=== PATIENT | female | born 2000 | race Hispanic/Latino ===

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

== ENCOUNTER 2020-05-08 09:25 | Emergency (ER) | payer SELFPAY ==
[2020-05-08 10:19] LABS: Absolute Lymphocytes (CBC) 1.8 K/uL (0.7-4.9); Basophils % 0.5 % (0-1.3); Hematocrit 35.9 % (36.0-45.0); Lymphocytes % 27.5 % (15.3-44.8); MPV 7.5 fL (7.6-11.3); RBC Red Blood Cell Count 3.98 M/uL (3.86-4.86)
[2020-05-08 10:20] LABS: Urine Blood 2+ (NEG); Urine Glucose NEGATIVE (NEG); Urine Protein 1+ (NEG)
[2020-05-08 10:29] LABS: Urine Bacteria >50 /HPF (<20); Urine Mucus MOD /HPF (NONE SEEN)
--- OUTSIDE RECORDS SUMMARY | 2020-05-08 10:31 | XMS REPORT | Continuity of Care Document ---
:2000 Author Organization [facility] t Address [facility] [address] [place] [address] Care Team Providers Name Role Phone Unavailable Unavailable Unavailable Problems This patient has no known problems. Allergies, Adverse Reactions, Alerts This patient has no known allergies or adverse reactions. Medications This patient has no known medications. Procedures This patient has no known procedures. Encounters Start End Encounter Admission Attending Care Care Encounter Source Date/Time Date/Time Type Type Clinicians Facility Department ID 2019-03-29 2019-03-29 Emergency E [facility] [address] [facility] 21:51:00 21:51:00 Results This patient has no known results.
[2020-05-08 10:34] LABS: ALT/SGPT 25 U/L (12-78); AST/SGOT 18 U/L (15-37); Albumin 3.7 g/dL (3.4-5.0); Alkaline Phosphatase 91 U/L (45-117); BUN Blood Urea Nitrogen 9 mg/dL (7-18); Bicarbonate 29 mmol/L (21-32); Bilirubin Direct < 0.1 mg/dL (0-0.2); Bilirubin Total 0.3 mg/dL (0.2-1.0); Glucose Level 94 mg/dL (74-106); Lipase 52 U/L (73-393); Potassium 3.5 mmol/L (3.5-5.1); Protein, Total 8.3 g/dL (6.4-8.2); Sodium Level 140 mmol/L (136-145)
--- NOTE | 2020-05-08 10:36 | RAD REPORT ---
EXAM DESCRIPTION: CT - Stone Protocol - 05/08/2020 10:21 am CLINICAL HISTORY: Abdominal pain. COMPARISON: None. TECHNIQUE: Computed axial tomography of the abdomen pelvis was obtained without oral or IV contrast. Lack of IV and oral contrast limits evaluation of solid organs, bowel, and vessels. Coronal reformat hiram images were obtained and reviewed. All CT scans are performed using dose optimization technique as appropriate and may include automated exposure control or mA/KV adjustment according to patient size. FINDINGS: A renal calculus is not seen. An ureteral calculus is not noted. A bladder calculus is not present. The liver is enlarged. Spleen, pancreas and adrenals appear grossly normal There is no evidence of diverticulitis. The appendix appears normal 4.5 centimeter right breast mass 3 centimeter right ovarian cyst without significant free fluid is noted. Tiny umbilical hernia IMPRESSION: Negative for a genitourinary calculus Hepatomegaly 4.5 centimeter right breast mass. Ultrasound recommended 3 centimeter right ovarian cyst without significant free fluid
--- NOTE | 2020-05-08 10:43 | ER ---
Nurse's Notes [facility] Name: Rosemary Arnold Age: 19 yrs Sex: Female : 2000 Arrival Date: 05/08/2020 Time: 09:27 Bed 13 Private MD: Diagnosis: Unspecified ovarian cysts;Urinary tract infection, site not specified;Breast Mass Presentation: 05/08 09:36 Chief complaint: Patient states: pelvic pain and vaginal pain, intermittent for about a iw week, has hx of ovarian cysts, and has intermittent vaginal bleeding, not , and her tonsils are swollen and painful since Thanksgiving , no fever or chills. Coronavirus screen: sore throat. Ebola Screen: Patient negative for fever greater than or equal to 101.5 degrees Fahrenheit, and additional compatible Ebola Virus Disease symptoms Patient denies exposure to infectious person. Patient denies travel to an Ebola-affected area in the 21 days before illness onset. No symptoms or risks identified at this time. Initial Sepsis Screen: Does the patient meet any 2 criteria? No. Patient's initial sepsis screen is negative. Does the patient have a suspected source of infection? No. Patient's initial sepsis screen is negative. Risk Assessment: Do you want to hurt yourself or someone else? Patient reports no desire to harm self or others. Onset of symptoms was May 01, 2020. 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 - Social history:: Smoking status: Patient denies any tobacco usage or history of. - Family history:: not pertinent. - Hospitalizations: : No recent hospitalization is reported. Screenin:14 Abuse screen: Denies threats or abuse. Denies injuries from another. Nutritional zb screening: No deficits noted. Tuberculosis screening: No symptoms or risk factors identified. Fall Risk None identified. Assessment: 10:09 General: Appears in no apparent distress. comfortable, Behavior is calm, cooperative, zb appropriate for age, Denies fever, feeling ill, fatigue. Pain: Complains of pain in right femoral area, left femoral area, right inguinal area and left inguinal area Pain does not radiate. Pain currently is 6 out of 10 on a pain scale. Quality of pain is described as aching, sharp. Neuro: Level of Consciousness is awake, alert, obeys commands, Oriented to person, place, time, situation. Cardiovascular: Capillary refill < 3 seconds in bilateral fingers Patient's skin is warm and dry. Respiratory: Airway is patent Respiratory effort is even, unlabored, Respiratory pattern is regular, symmetrical. GI: Abdomen is flat, non-distended. : Reports pain Denies burning with urination, incontinence, urgency. EENT: Throat is clear has enlarged tonsils bilaterally with gag reflex present. Derm: Skin is intact, is healthy with good turgor, Skin is Skin is normal. Musculoskeletal: Circulation, motion, and sensation intact. Capillary refill < 3 seconds, in bilateral Range of motion: intact in all extremities. 11:00 Reassessment: Patient appears in no apparent distress at this time. Patient and/or zb family updated on plan of care and expected duration. Pain level reassessed. Patient is alert, oriented x 3, equal unlabored respirations, skin warm/dry/pink. d/c given. Vital Signs: 09:36 BP 129 / 93; Pulse 79; Resp 16; Temp 98.6; Pulse Ox 100% on R/A; Weight 86.18 kg; iw Height 5 ft. 3 in. (160.02 cm); Pain 6/10; 11:00 BP 128 / 79; Pulse 73; Resp 18; Pulse Ox 100% on R/A; zb 09:36 Body Mass Index 33.66 (86.18 kg, 160.02 cm) iw ED Course: 09:27 Patient arrived in ED. as 09:39 Triage completed. iw 09:39 Arm band placed on. iw 09:40 Joao Solares MD is Attending Physician. rn 09:43 Concha Haider RN is Primary Nurse. zb 10:14 Inserted saline lock: 20 gauge in right antecubital area, using aseptic technique. zb 10:16 Patient has correct armband on for positive identification. Bed in low position. Call zb light in reach. Side rails up X 1. Door closed. 10:22 CT Stone Protocol In Process Unspecified. EDMS 11:06 No provider procedures requiring assistance completed. IV discontinued, intact, zb bleeding controlled, No redness/swelling at site. Pressure dressing applied. Administered Medications: No medications were administered Outcome: 10:42 Discharge ordered by . rn 11:06 Discharged to home ambulatory. zb 11:06 Condition: stable 11:06 Discharge instructions given to patient, Instructed on discharge instructions, follow up and referral plans. medication usage, Demonstrated understanding of instructions, follow-up care, medications, Prescriptions given X 1. 11:06 Patient left the ED. ward Signatures: Dispatcher [employer] EDMS Zina Albright Irene, RN RN iw Nieto, Roman, MD MD rn Brown, Zipporah, RN RN zb
--- NOTE | 2020-05-08 10:44 | EDPHYS ---
Physician Documentation [facility] Name: Rosemary Arnold Age: 19 yrs Sex: Female : 2000 Arrival Date: 05/08/2020 Time: 09:27 Bed 13 Private MD: ED Physician Joao Solares HPI: 05/08 10:38 This 19 yrs old Female presents to ER via Ambulatory with complaints of Pelvic rn Pain, Vaginal Pain. 10:38 The patient presents with pelvic pain. Onset: The symptoms/episode began/occurred 1 rn week(s) ago. Modifying factors: The symptoms are alleviated by nothing, the symptoms are aggravated by pressure. Severity of symptoms: At their worst the symptoms were mild, in the emergency department the symptoms are unchanged. The patient has not experienced similar symptoms in the past. The patient has not recently seen a physician. Reports lower pelvic pain, + hx of ovarian cysts, thinks might have another or UTI, no vaginal discharge or bleeding, no hx of kidney stones. No fever/vomiting/diarrhea. . 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 - Social history:: Smoking status: Patient denies any tobacco usage or history of. - Family history:: not pertinent. - Hospitalizations: : No recent hospitalization is reported. ROS: 10:38 Constitutional: Negative for fever, chills, and weight loss, Eyes: Negative for injury, rn pain, redness, and discharge, Neck: Negative for injury, pain, and swelling, Cardiovascular: Negative for chest pain, palpitations, and edema, Respiratory: Negative for shortness of breath, cough, wheezing, and pleuritic chest pain, Abdomen/GI: + abd pain Back: Negative for injury and pain, : Negative for injury, bleeding, discharge, and swelling, MS/Extremity: Negative for injury and deformity, Skin: Negative for injury, rash, and discoloration, Neuro: Negative for headache, weakness, numbness, tingling, and seizure. Exam: 10:38 Constitutional: This is a well developed, well nourished patient who is awake, alert, rn and in no acute distress. Sitting with legs crossed, using phone. Head/Face: Normocephalic, atraumatic. Cardiovascular: Regular rate and rhythm. No pulse deficits. Respiratory: No increased work of breathing, no retractions or nasal flaring. Abdomen/GI: soft, + suprapubic tenderness, no rebound or peritoneal signs. Back: No spinal tenderness. No costovertebral tenderness. Full range of motion. Skin: Warm, dry with normal turgor. Normal color with no rashes, no lesions, and no evidence of cellulitis. MS/ Extremity: Pulses equal, no cyanosis. Neurovascular intact. Full, normal range of motion. Equal circumference. Neuro: Awake and alert, GCS 15, oriented to person, place, time, and situation. Cranial nerves II-XII grossly intact. Motor strength 5/5 in all extremities. Sensory grossly intact. Cerebellar exam normal. Normal gait. Vital Signs: 09:36 BP 129 / 93; Pulse 79; Resp 16; Temp 98.6; Pulse Ox 100% on R/A; Weight 86.18 kg; iw Height 5 ft. 3 in. (160.02 cm); Pain 6/10; 11:00 BP 128 / 79; Pulse 73; Resp 18; Pulse Ox 100% on R/A; zb 09:36 Body Mass Index 33.66 (86.18 kg, 160.02 cm) iw MDM: 09:40 Patient medically screened. rn 10:38 Differential diagnosis: kidney stone, malignancy, nonspecific abdominal pain, ovarian rn cyst, urinary tract infection. Data reviewed: vital signs, nurses notes, lab test result(s), radiologic studies, CT scan, and as a result, I will discharge patient. Counseling: I had a detailed discussion with the patient and/or guardian regarding: the historical points, exam findings, and any diagnostic results supporting the discharge/admit diagnosis, lab results, radiology results, the need for outpatient follow up, to return to the emergency department if symptoms worsen or persist or if there are any questions or concerns that arise at home. Special discussion: I discussed with the patient/guardian in detail that at this point there is no indication for admission to the hospital. It is understood, however, that if the symptoms persist or worsen the patient needs to return immediately for re-evaluation. Based on the history and exam findings, there is no indication for further emergent testing or inpatient evaluation. I discussed with the patient/guardian the need to see the OB Gyne specialist for further evaluation of the symptoms. I discussed with the patient/guardian the need to see the primary care provider for further evaluation of the symptoms. ED course: Pt with right ovarian cyst and UTI, will dc home with abx. Discussed right breast mass and need for outpt u/s and further evaluation. . 10:57 ED course: Knows of breast mass already, has had 2 u/s, non-malignant.. rn 05/08 09:57 Order name: Basic Metabolic Panel; Complete Time: 10:37 rn 05/08 09:57 Order name: CBC with Diff; Complete Time: 10:37 rn 05/08 09:57 Order name: Hepatic Function; Complete Time: 10:37 rn 05/08 09:57 Order name: Lipase; Complete Time: 10:37 rn 05/08 09:57 Order name: Urine Microscopic Only; Complete Time: 10:37 rn 05/08 10:07 Order name: Urine Dipstick--Ancillary (enter results); Complete Time: 10:37 eb 05/08 09:57 Order name: IV Saline Lock; Complete Time: 10: rn 05/08 09:57 Order name: Labs collected and sent; Complete Time: 10: rn 05/08 09:57 Order name: CT Stone Protocol; Complete Time: 10:37 rn 05/08 09:57 Order name: Urine Test (obtain specimen); Complete Time: 10:09 rn 05/08 09:57 Order name: Urine Dipstick-Ancillary (obtain specimen); Complete Time: 10: rn 05/08 10:07 Order name: Urine --Ancillary (enter results); Complete Time: 10:37 eb Administered Medications: No medications were administered Disposition: 05/08/20 10:42 Discharged to Home. Impression: Unspecified ovarian cysts, Urinary tract infection, site not specified, Breast Mass. - Condition is Stable. - Discharge Instructions: Ovarian Cyst, Urinary Tract Infection, Adult, Breast Ultrasound. - Prescriptions for Cipro 500 mg Oral Tablet - take 1 tablet by ORAL route every 12 hours for 7 days; 14 tablet. - Work release form, Medication Reconciliation Form, Thank You Letter, Antibiotic Education, Prescription Opioid Use form. - Follow up: Private Physician; When: As needed; Reason: Recheck today's complaints, Re-evaluation by your physician. - Problem is new. - Symptoms have improved. Signatures: Dispatcher [employer] Judit Mary RN RN iw Nieto, Roman, MD MD rn Brown, ALIA Kern RN Corrections: (The following items were deleted from the chart) 11:06 10:42 05/08/2020 10:42 Discharged to Home. Impression: Unspecified ovarian cysts; zb Urinary tract infection, site not specified; Breast Mass. Condition is Stable. Forms are Medication Reconciliation Form, Thank You Letter, Antibiotic Education, Prescription Opioid Use. Follow up: Private Physician; When: As needed; Reason: Recheck today's complaints, Re-evaluation by your physician. Problem is new. Symptoms have improved. rn
[2020-05-09 20:22] VITALS: TEMP 98.6; O2SAT 100
[2020-05-09 20:23] VITALS: BP 128/79
== END 2020-05-08 11:06 | disposition home or self-care (01) ==
LOC: ER 09:25
DX: N39.0 Urinary tract infection, site not specified (principal); N83.209 Unspecified ovarian cyst, unspecified side; N63.0 Unspecified lump in unspecified breast
CPT/HCPCS: 36415; 74176; 76377; 80048; 80076; 81003; 81015; 81025; 83690; 85025; 99283

== ENCOUNTER 2020-11-03 12:05 | Emergency (ER) | payer SELFPAY ==
--- OUTSIDE RECORDS SUMMARY | 2020-11-03 12:08 | XMS REPORT | Continuity of Care Document ---
:2000 Author Organization [facility] t Address [address] [place] [address] Dr. [address] [place] [id number] Care Team Providers Name Role Phone Unavailable [...] Facility Department ID 2019-03-29 2019-03-29 Emergency E [facility] [address] [facility] 21:51:00 21:51:00 Results This patient has no known results.
[2020-11-03 13:32] LABS: Urine Blood Trace-lysed (Negative); Urine Glucose Negative (Negative); Urine Protein Negative (Negative)
[2020-11-03 14:25] LABS: Absolute Lymphocytes (CBC) 1.7 K/uL (0.7-4.9); Basophils % 0.3 % (0-1.3); Hematocrit 36.6 % (36.0-45.0); Lymphocytes % 23.6 % (15.3-44.8); MPV 7.6 fL (7.6-11.3); RBC Red Blood Cell Count 4.13 M/uL (3.86-4.86)
[2020-11-03 14:46] LABS: BUN Blood Urea Nitrogen 9 mg/dL (7-18); Bicarbonate 27 mmol/L (21-32); Glucose Level 95 mg/dL (74-106); HCG, Quantitative 38 mIU/mL (1-3); Potassium 3.7 mmol/L (3.5-5.1); Sodium Level 140 mmol/L (136-145)
[2020-11-03] MEDS ORDERED: NA CHLORIDE 0.9% 1,000 ML ONE (14:47)
[2020-11-03] MEDS ORDERED: ONDANSETRON 4 MG/2 ML VIAL ONE (14:47)
--- NOTE | 2020-11-03 15:52 | RAD REPORT ---
EXAM DESCRIPTION: US - Transvaginal OB - 11/03/2020 3:34 pm CLINICAL HISTORY: pelvic pain, (+) UPT COMPARISON: No comparisons FINDINGS: No intrauterine gestational sac or sac remnant identifiable. Endometrial stripe is thin wi th no hematoma, mass, polyp or other focal abnormality identifiable. Uterus is normal size. No myometrial mass lesions identifiable. Endometrial stripe is 5-6 mm in maxim um thickness. Both ovaries are identified and show normal blood flow within the ovarian stroma. The right ovary con tains a 2 centimeter anechoic cyst or follicle. No blood or fluid in the cul de sac. There is no adnexal mass identified that would suggest extra [place] rine . IMPRESSION: No intrauterine gestational sac or sac remnant is identified No adnexal mass or other finding of extrauterine . Repeat sonography could be performed if serial beta HCG studies indicate ongoing .
--- NOTE | 2020-11-03 16:02 | EDPHYS ---
Physician Documentation [facility] Name: Rosemary Arnold Age: 19 yrs Sex: Female : 2000 Arrival Date: 11/03/2020 Time: 12:13 Bed 23 Private MD: ED Physician Diana Morse HPI: 11/03 14:03 This 19 yrs old Female presents to ER via Ambulatory with complaints of jmm Abdominal Pain, +Positive test. 14:03 The patient presents with abdominal pain. Onset: The symptoms/episode began/occurred jmm gradually, 3 day(s) ago. Associated signs and symptoms: Pertinent positives: diarrhea, vomiting. The symptoms are described as achy. Modifying factors: The symptoms are alleviated by nothing, the symptoms are aggravated by nothing. This is a 19 year old female with no known chronic medical conditions that presents to the ED with complaints of pelvic pain beginning approx 3 days ago. Denies fever. Patient admits to vomiting and diarrhea. LMP 3 weeks prior. . Historical: - Allergies: 12:20 No Known Allergies; ss - PMHx: 12:20 None; ss - PSHx: 12:20 None; ss - Immunization history:: Flu vaccine is not up to date. - Social history:: Smoking status: Patient denies any tobacco usage or history of. ROS: 14:03 Constitutional: Negative for fever, chills, and weight loss, Cardiovascular: Negative jmm for chest pain, palpitations, and edema, Respiratory: Negative for shortness of breath, cough, wheezing, and pleuritic chest pain. 14:03 Abdomen/GI: Positive for abdominal pain. 14:03 All other systems are negative. Exam: 14:03 Constitutional: This is a well developed, well nourished patient who is awake, alert, jmm and in no acute distress. Head/Face: atraumatic. Eyes: EOMI, no conjunctival erythema appreciated ENT: Moist Mucus Membranes Neck: Trachea midline, Supple Chest/axilla: Normal chest wall appearance and motion. Cardiovascular: Regular rate and rhythm. No edema appreciated Respiratory: Normal respirations, no respiratory distress appreciated 14:03 Skin: General appearance color normal MS/ Extremity: Moves all extremities, no obvious deformities appreciated, no edema noted to the lower extremities Neuro: Awake and alert, normal gait Psych: Behavior is normal, Mood is normal, Patient is cooperative and pleasant 14:03 Abdomen/GI: Inspection: obese Bowel sounds: normal, Palpation: soft, nontender, in the right upper quadrant, left upper quadrant, right lower quadrant and left lower quadrant, mild suprapubic tenderness on palpation. Vital Signs: 12:19 BP 133 / 71; Pulse 84; Resp 16; Temp 97.6; Pulse Ox 99% ; Weight 86.18 kg; Height 5 ft. ss 3 in. (160.02 cm); Pain 5/10; 14:22 BP 116 / 73 RA Supine (auto/reg); Pulse 84; Pulse Ox 99% on R/A; jp3 12:19 Body Mass Index 33.66 (86.18 kg, 160.02 cm) ss MDM: 14:02 Patient medically screened. [facility] 15:59 Data reviewed: vital signs, nurses notes. Counseling: I had a detailed discussion with lobo the patient and/or guardian regarding: the historical points, exam findings, and any diagnostic results supporting the discharge/admit diagnosis, lab results, radiology results, the need for outpatient follow up, to return to the emergency department if symptoms worsen or persist or if there are any questions or concerns that arise at home. ED course: Patient is alert and non toxic in appearance in the ED. I do not suspect acute appendicitis. Due to low HCG levels, advised to follow up with OB for further evaluation within 2 to 3 days. Patient otherwise given strict return precautions. Patient understood and agrees with the plan of care. . 11/03 13:31 Order name: Urine Dipstick-Ancillary; Complete Time: 14:02 [facility] 11/03 14:02 Order name: Quantitative Hcg; Complete Time: 15:04 [facility] 11/03 14:02 Order name: Abo/rh Typing; Complete Time: 15:19 [facility] 11/03 14:02 Order name: Basic Metabolic Panel; Complete Time: 15:04 [facility] 11/03 14:02 Order name: CBC with Diff; Complete Time: 14:32 [facility] 11/03 14:02 Order name: IV Saline Lock; Complete Time: 14:23 [facility] 11/03 14:02 Order name: Labs collected and sent; Complete Time: 14:23 [facility] 11/03 14:02 Order name: NPO; Complete Time: 14:23 [facility] 11/03 14:19 Order name: Transvaginal OB; Complete Time: 15:52 EDMT 11/03 14:30 Order name: Urine --Ancillary (enter results) dh3 11/03 14:02 Order name: Urine Dipstick-Ancillary (obtain specimen); Complete Time: 14:23 [facility] 11/03 15:53 Order name: PO challenge; Complete Time: 16:03 [facility] Administered Medications: 14:30 Drug: NS 0.9% 1000 ml Route: IV; Rate: 1 bolus; Site: right antecubital; 16:00 Follow up: IV Status: Completed infusion 14:30 Drug: Zofran (Ondansetron) 4 mg Route: IVP; Site: right antecubital; ss 15:59 Follow up: Response: No adverse reaction Point of Care Testing: Urine : 14:05 hCG Reading: Positive; Control Reading: Positive; jp3 Disposition: 11/04 14:34 Co-signature as Attending Physician, Diana Morse MD. ma2 Disposition: 11/03/20 16:01 Discharged to Home. Impression: Pelvic and perineal pain, Vomiting, Diarrhea, unspecified. - Condition is Stable. - Discharge Instructions: Food Choices to Help Relieve Diarrhea, Adult, Diarrhea, Adult, Nausea and Vomiting, Adult, Pelvic Pain, Female, Eating Plan for Hyperemesis Gravidarum. - Prescriptions for Zofran ODT 4 mg Oral tablet,disintegrating - place 1 tablet by TRANSLINGUAL route every 4-6 hours; 20 tablet. - Medication Reconciliation Form, Thank You Letter, Antibiotic Education, Prescription Opioid Use form. - Follow up: Private Physician; When: 2 - 3 days; Reason: Recheck today's complaints, Continuance of care, Re-evaluation by your physician. - Notes: You will need to follow up with an QA AUTOMATION ENGINEER in 2 to 3 days for reevaluation. You are very early in your . The ultrasound did not reveal signs of . You will need a repeat ultrasound for further evaluation. If you develop increased pain, please return to the ER for reevaluation. Signatures: Dispatcher [employer] EDMS Mega Claudio PA PA jmm Smirch, Shelby, RN RN ss Alzahri, Mohammad, MD MD ma2 Corrections: (The following items were deleted from the chart) 11/03 14:19 14:04 1st Trimest Single 1st Fetus+US.RAD.BRZ ordered. [facility] EDMS 16:14 16:01 11/03/2020 16:01 Discharged to Home. Impression: Pelvic and perineal pain; ss Vomiting; Diarrhea, unspecified. Condition is Stable. Forms are Medication Reconciliation Form, Thank You Letter, Antibiotic Education, Prescription Opioid Use. Follow up: Private Physician; When: 2 - 3 days; Reason: Recheck today's complaints, Continuance of care, Re-evaluation by your physician. lobo
--- NOTE | 2020-11-03 16:02 | ER ---
Nurse's Notes [facility] Name: Rosemary Arnold Age: 19 yrs Sex: Female : 2000 Arrival Date: 11/03/2020 Time: 12:13 Bed 23 Private MD: Diagnosis: Pelvic and perineal pain;Vomiting;Diarrhea, unspecified Presentation: 11/03 12:19 Coronavirus screen: Client denies travel out of the [place] in the last 14 days. At this ss time, the client does not indicate any symptoms associated with coronavirus-19. Ebola Screen: Patient denies travel to an Ebola-affected area in the 21 days before illness onset. Initial Sepsis Screen: Does the patient meet any 2 criteria? No. Patient's initial sepsis screen is negative. Does the patient have a suspected source of infection? Yes: Acute abdominal pain. Risk Assessment: Do you want to hurt yourself or someone else? Patient reports no desire to harm self or others. Onset of symptoms was October 27, 2020. 12:19 Method Of Arrival: Ambulatory ss 12:19 Acuity: TRACY 3 ss 12:21 Chief complaint: Patient states: Cramping for 1 week. + N/V/D. No fever. Had a positive ss test at home 2 days ago. center told her to come to ED since she has had cramping this week. "Creamy" vaginal discharge, no foul odor or itching. G2, P1. Historical: - Allergies: 12:20 No Known Allergies; ss - PMHx: 12:20 None; ss - PSHx: 12:20 None; ss - Immunization history:: Flu vaccine is not up to date. - Social history:: Smoking status: Patient denies any tobacco usage or history of. Screenin:48 Abuse screen: Denies threats or abuse. Denies injuries from another. Nutritional ss screening: No deficits noted. Tuberculosis screening: Never had TB. Assessment: 13:55 General: Appears in no apparent distress. comfortable, Behavior is calm, cooperative. ss Pain: Complains of pain in left lower quadrant and right lower quadrant and left upper quadrant and right upper quadrant Pain currently is 5 out of 10 on a pain scale. Quality of pain is described as crampy, Is continuous. Neuro: Level of Consciousness is awake, alert, obeys commands, Oriented to person, place, time, situation, Speech is normal. Cardiovascular: Capillary refill < 3 seconds is brisk in bilateral fingers Patient's skin is warm and dry. Respiratory: Airway is patent Trachea midline Respiratory effort is even, unlabored, Respiratory pattern is regular, symmetrical. GI: Bowel sounds present X 4 quads. Abd is soft and non tender X 4 quads. Patient currently denies nausea, vomiting. : Denies burning with urination, urinary frequency. EENT: Oral mucosa is moist. Throat is clear. Derm: Skin is intact, is healthy with good turgor, Skin is dry, Skin is pink, warm \\T\\ dry. normal. Musculoskeletal: Range of motion: intact in all extremities. 15:48 Reassessment: Patient appears in no apparent distress at this time. Patient and/or ss family updated on plan of care and expected duration. Pain level reassessed. Patient is alert, oriented x 3, equal unlabored respirations, skin warm/dry/pink. Awaiting for ultrasound results. Vital Signs: 12:19 BP 133 / 71; Pulse 84; Resp 16; Temp 97.6; Pulse Ox 99% ; Weight 86.18 kg; Height 5 ft. ss 3 in. (160.02 cm); Pain 5/10; 14:22 BP 116 / 73 RA Supine (auto/reg); Pulse 84; Pulse Ox 99% on R/A; jp3 12:19 Body Mass Index 33.66 (86.18 kg, 160.02 cm) ED Course: 12:13 Patient arrived in ED. bp1 12:20 Triage completed. ss 12:21 Arm band placed on. 13:33 Syl Latham, ALIA is Primary Nurse. ph 13:34 Mega Claudio PA is PHCP. [facility] 13:34 Diana Morse MD is Attending Physician. jmm 14:02 Urine collected: clean catch specimen, clear, robson colored. jp3 14:10 Initial lab(s) drawn, by me, sent to lab. Inserted saline lock: 20 gauge in right jp3 antecubital area, using aseptic technique. Blood collected. Patient maintains SpO2 saturation greater than 95% on room air. 14:10 T\\T\\S collected, blood band applied to patient. jp3 14:22 Bed in low position. Call light in reach. Side rails up X 1. Warm blanket given. Verbal jp3 reassurance given. Pulse ox on. NIBP on. 14:24 Diet: Patient is NPO. jp3 15:34 Transvaginal OB In Process Unspecified. EDMS 16:13 No provider procedures requiring assistance completed. IV discontinued, intact, ss bleeding controlled, No redness/swelling at site. Pressure dressing applied. Administered Medications: 14:30 Drug: NS 0.9% 1000 ml Route: IV; Rate: 1 bolus; Site: right antecubital; ss 16:00 Follow up: IV Status: Completed infusion ss 14:30 Drug: Zofran (Ondansetron) 4 mg Route: IVP; Site: right antecubital; 15:59 Follow up: Response: No adverse reaction Point of Care Testing: Urine : 14:05 hCG Reading: Positive; Control Reading: Positive; jp3 Outcome: 16:01 Discharge ordered by . lobo 16:13 Discharged to home ambulatory. 16:13 Condition: good 16:13 Discharge instructions given to patient, Instructed on discharge instructions, follow up and referral plans. Demonstrated understanding of instructions, follow-up care, medications. 16:14 Patient left the ED. ss Signatures: Dispatcher [employer] EDMS Mega Claudio PA PA jmm Smirch, Shelby, ALIA RN Syl Latham RN RN Gideon Quintana jp3 Christina Nino
[2020-11-03 16:30] VITALS: TEMP 97.6; O2SAT 99
[2020-11-03 16:32] VITALS: BP 116/73
== END 2020-11-03 16:14 | disposition home or self-care (01) ==
LOC: ER 12:05
DX: R10.2 Pelvic and perineal pain (principal); R19.7 Diarrhea, unspecified; R11.10 Vomiting, unspecified
CPT/HCPCS: 36415; 76817; 80048; 81003; 81025; 84702; 85025; 86900; 86901; J2405; J7030

== ENCOUNTER 2020-11-12 00:21 | Emergency (ER) | payer SELFPAY ==
--- OUTSIDE RECORDS SUMMARY | 2020-11-12 00:24 | XMS REPORT | Continuity of Care Document ---
:2000 Author Organization [facility] t Address [address] [place] [address] Dr. Alfaro [address] [place] [id number] Care Team Providers Name Role Phone Unavailable [...] Facility Department ID 2019-03-29 2019-03-29 Emergency [facility] [id number] [facility] 21:51:00 21:51:00 Results This patient has no known results.
[2020-11-12 01:41] LABS: Urine Blood Trace-intact (Negative); Urine Glucose Negative (Negative); Urine Protein Negative (Negative); Urine Specific Gravity >=1.030 (1.005-1.030); Urine pH 5.5 (5.0-7.0)
[2020-11-12 01:45] LABS: Absolute Lymphocytes (CBC) 1.9 K/uL (0.7-4.9); Basophils % 0.4 % (0-1.3); Hematocrit 31.8 % (36.0-45.0); Lymphocytes % 26.3 % (15.3-44.8); RBC Red Blood Cell Count 3.54 M/uL (3.86-4.86)
[2020-11-12 01:48] LABS: Urine Specific Gravity/Preg >1.030 (1.005-1.030)
[2020-11-12 02:06] LABS: ALT/SGPT 33 U/L (12-78); AST/SGOT 23 U/L (15-37); Albumin 3.4 g/dL (3.4-5.0); Alkaline Phosphatase 90 U/L (45-117); BUN Blood Urea Nitrogen 9 mg/dL (7-18); Bicarbonate 26 mmol/L (21-32); Bilirubin Direct < 0.1 mg/dL (0-0.2); Bilirubin Total 0.2 mg/dL (0.2-1.0); Glucose Level 101 mg/dL (74-106); Lipase 52 U/L (73-393); Potassium 3.5 mmol/L (3.5-5.1); Protein, Total 7.1 g/dL (6.4-8.2); Sodium Level 142 mmol/L (136-145)
--- NOTE | 2020-11-12 05:04 | ER ---
Nurse's Notes [facility] Name: Rosemary Arnold Age: 20 yrs Sex: Female : 2000 Arrival Date: 11/12/2020 Time: 00:23 Bed 2 Private MD: Diagnosis: Threatened Presentation: 11/12 00:44 Chief complaint: Patient states: I am having vaginal spotting, abdominal pain started rr5 an hour ago. with nausea, vomiting and diarrhea. came here last week with the same complaint. one month . Coronavirus screen: Client denies travel out of the [place] in the last 14 days. At this time, the client does not indicate any symptoms associated with coronavirus-19. Ebola Screen: Patient negative for fever greater than or equal to 101.5 degrees Fahrenheit, and additional compatible Ebola Virus Disease symptoms Patient denies exposure to infectious person. Patient denies travel to an Ebola-affected area in the 21 days before illness onset. Initial Sepsis Screen: Does the patient meet any 2 criteria? No. Patient's initial sepsis screen is negative. Does the patient have a suspected source of infection? No. Patient's initial sepsis screen is negative. Risk Assessment: Do you want to hurt yourself or someone else? Patient reports no desire to harm self or others. Onset of symptoms was November 12, 2020. 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 - Social history:: Smoking status: unknown Patient/guardian denies using alcohol, street drugs. Screenin:51 Abuse screen: Denies threats or abuse. Denies injuries from another. Nutritional rr5 screening: No deficits noted. Tuberculosis screening: No symptoms or risk factors identified. Fall Risk None identified. Total Orozco Fall Scale indicates No Risk (0-24 pts). Assessment: 00:50 General: Appears in no apparent distress. uncomfortable, Behavior is calm, cooperative, rr5 appropriate for age. Pain: Complains of pain in left lower quadrant Pain currently is 6 out of 10 on a pain scale. Quality of pain is described as aching, Pain began gradually, Is intermittent. Neuro: Level of Consciousness is awake, alert, obeys commands, Oriented to person, place, time. Cardiovascular: Capillary refill < 3 seconds Patient's skin is warm and dry. Respiratory: Airway is patent Respiratory effort is even, unlabored, Respiratory pattern is regular, symmetrical. GI: Abdomen is round Abd is soft Reports lower abdominal pain, diarrhea, nausea, vomiting. : Reports pain in left lower quadrant(s) vaginal bleeding that is spotty. EENT: No signs and/or symptoms were reported regarding the EENT system. Derm: Skin temperature is warm. Musculoskeletal: No signs and/or symptoms reported regarding the musculoskeletal system. 01:55 Reassessment: Patient and/or family updated on plan of care and expected duration. Pain ea level reassessed. Patient is alert, oriented x 3, equal unlabored respirations, skin warm/dry/pink. 02:30 Reassessment: Patient appears in no apparent distress at this time. No changes from rr5 previously documented assessment. 03:55 Reassessment: Patient appears in no apparent distress at this time. Patient is alert, rr5 oriented x 3, equal unlabored respirations, skin warm/dry/pink. awaiting for ultrasound procedure. 05:08 Reassessment: Patient and/or family updated on plan of care and expected duration. Pain ea level reassessed. Patient is alert, oriented x 3, equal unlabored respirations, skin warm/dry/pink. Discharge instruction given to patient verbalized the understanding of instruction. Pt left ED ambulatory tolerating well. Vital Signs: 00:44 BP 128 / 94; Pulse 91; Resp 16; Temp 97.6; Pulse Ox 100% ; Weight 86.18 kg; Height 5 rr5 ft. 2 in. (157.48 cm); Pain 6; 01:30 BP 105 / 59; Pulse 83; Resp 18; Pulse Ox 99% ; ea 05:09 BP 120 / 60; Pulse 80; Resp 18; Pulse Ox 99% on R/A; ea 00:44 Body Mass Index 34.75 (86.18 kg, 157.48 cm) rr5 ED Course: 00:23 Patient arrived in ED. es 00:35 Josafat Wiley, RN is Primary Nurse. rr5 00:49 Triage completed. rr5 00:50 Arm band placed on right wrist. rr5 00:52 Patient has correct armband on for positive identification. Call light in reach. rr5 01:14 Ryan Baca MD is Attending Physician. mh7 01:15 Inserted saline lock: 20 gauge in right antecubital area, using aseptic technique. ea Blood collected. 02:39 called LILIYA spoke to Spencer to have her call out US. mw2 04:57 US Transvaginal Ob In Process Unspecified. EDMS 05:02 Kirti Rivers MD is Referral Physician. 7 05:10 No provider procedures requiring assistance completed. IV discontinued, intact, ea bleeding controlled, No redness/swelling at site. Pressure dressing applied. Administered Medications: No medications were administered Outcome: 05:03 Discharge ordered by . 7 05:10 Discharged to home ambulatory, with significant other. ea 05:10 Condition: stable 05:10 Discharge instructions given to patient, Instructed on discharge instructions, follow up and referral plans. Demonstrated understanding of instructions, follow-up care. 05:10 Patient left the ED. ea Signatures: Dispatcher [employer] EDAmi Jack Elena RN RN Katie Frazier mw2 Josafat Wiley, RN RN rr5 Ryan Baca MD MD [facility]
--- NOTE | 2020-11-12 05:04 | EDPHYS ---
Physician Documentation [facility] Name: Rosemary Arnold Age: 20 yrs Sex: Female : 2000 Arrival Date: 11/12/2020 Time: 00:23 Bed 2 Private MD: ED Physician Ryan Baca HPI: 11/12 02:42 This 20 yrs old Female presents to ER via Ambulatory with complaints of mh7 Abdominal Pain, Vaginal Bleeding. 02:42 The patient presents with vaginal bleeding that is spotting. Onset: The mh7 symptoms/episode began/occurred today. Modifying factors: The symptoms are alleviated by nothing, the symptoms are aggravated by nothing. Associated signs and symptoms: Pertinent positives: cramping, nausea, vaginal bleeding, vomiting, Pertinent negatives: constipation, diarrhea, dyspareunia, dysuria, fever, hematuria, urinary frequency, vaginal discharge. Severity of symptoms: At their worst the symptoms were moderate, earlier today, in the emergency department the symptoms have improved, markedly. 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 - Social history:: Smoking status: unknown Patient/guardian denies using alcohol, street drugs. ROS: 02:42 Constitutional: Negative for fever, chills, and weight loss, Eyes: Negative for injury, mh7 pain, redness, and discharge, ENT: Negative for injury, pain, and discharge, Neck: Negative for injury, pain, and swelling, Cardiovascular: Negative for chest pain, palpitations, and edema, Respiratory: Negative for shortness of breath, cough, wheezing, and pleuritic chest pain, Back: Negative for injury and pain, MS/Extremity: Negative for injury and deformity, Skin: Negative for injury, rash, and discoloration, Neuro: Negative for headache, weakness, numbness, tingling, and seizure, Psych: Negative for depression, anxiety, suicide ideation, homicidal ideation, and hallucinations, Allergy/Immunology: Negative for hives, rash, and allergies, Endocrine: Negative for neck swelling, polydipsia, polyuria, polyphagia, and marked weight changes, Hematologic/Lymphatic: Negative for swollen nodes, abnormal bleeding, and unusual bruising. Exam: 02:42 Constitutional: This is a well developed, well nourished patient who is awake, alert, mh7 and in no acute distress. Head/Face: Normocephalic, atraumatic. Eyes: Pupils equal round and reactive to light, extra-ocular motions intact. Lids and lashes normal. Conjunctiva and sclera are non-icteric and not injected. Cornea within normal limits. Periorbital areas with no swelling, redness, or edema. Neck: Trachea midline, no thyromegaly or masses palpated, and no cervical lymphadenopathy. Supple, full range of motion without nuchal rigidity, or vertebral point tenderness. No Meningismus. Chest/axilla: Normal chest wall appearance and motion. Nontender with no deformity. No lesions are appreciated. Cardiovascular: Regular rate and rhythm with a normal S1 and S2. No gallops, murmurs, or rubs. Normal PMI, no JVD. No pulse deficits. Respiratory: Lungs have equal breath sounds bilaterally, clear to auscultation and percussion. No rales, rhonchi or wheezes noted. No increased work of breathing, no retractions or nasal flaring. Abdomen/GI: Soft, non-tender, with normal bowel sounds. No distension or tympany. No guarding or rebound. No evidence of tenderness throughout. Back: No spinal tenderness. No costovertebral tenderness. Full range of motion. Skin: Warm, dry with normal turgor. Normal color with no rashes, no lesions, and no evidence of cellulitis. MS/ Extremity: Pulses equal, no cyanosis. Neurovascular intact. Full, normal range of motion. Neuro: Awake and alert, GCS 15, oriented to person, place, time, and situation. Cranial nerves II-XII grossly intact. Motor strength 5/5 in all extremities. Sensory grossly intact. Cerebellar exam normal. Normal gait. Psych: Awake, alert, with orientation to person, place and time. Behavior, mood, and affect are within normal limits. 03:10 : CVA tenderness, is absent, Pelvic Exam: The exam is refused by the 7 patient/guardian. The risks and consequences are understood by the patient, Bladder: is normal, non-distended, non-tender. Vital Signs: 00:44 BP 128 / 94; Pulse 91; Resp 16; Temp 97.6; Pulse Ox 100% ; Weight 86.18 kg; Height 5 rr5 ft. 2 in. (157.48 cm); Pain 6/10; 01:30 BP 105 / 59; Pulse 83; Resp 18; Pulse Ox 99% ; ea 05:09 BP 120 / 60; Pulse 80; Resp 18; Pulse Ox 99% on R/A; ea 00:44 Body Mass Index 34.75 (86.18 kg, 157.48 cm) rr5 MDM: 05:00 Differential diagnosis: dysfunctional uterine bleeding, dysmenorrhea, menorrhea, mh7 threatened Ab, inevitable Ab, complete Ab, retained Ab, missed Ab, ovarian cyst, postcoital bleeding, uterine fibroids, urinary tract infection. Data reviewed: vital signs, nurses notes, old medical records, lab test result(s), Beta HCG: CBC, electrolytes, urinalysis, radiologic studies, ultrasound. Counseling: I had a detailed discussion with the patient and/or guardian regarding: the historical points, exam findings, and any diagnostic results supporting the discharge/admit diagnosis, lab results, radiology results, the need for outpatient follow up, an OB/Gyne specialist, to return to the emergency department if symptoms worsen or persist or if there are any questions or concerns that arise at home. Response to treatment: the patient's symptoms have resolved after treatment, the patient's blood pressure is in an acceptable range, mental status has returned to baseline, the patient no longer shows bradycardia, the patient is not short of breath, the patient is not tachycardic, the patient's pain is gone, the patient's temperature has normalized. 05:03 Patient medically screened. [facility] 11/12 00:58 Order name: Abo/rh Typing; Complete Time: 02:39 11/12 00:58 Order name: Basic Metabolic Panel; Complete Time: 02:11/12 00:58 Order name: CBC with Diff; Complete Time: 02:11/12 00:59 Order name: Hepatic Function; Complete Time: 02:11/12 00:59 Order name: Lipase; Complete Time: 02:17 ea 11/12 01:09 Order name: HCG-Quantitative rr5 11/12 00:58 Order name: Urine Test (obtain specimen); Complete Time: 01:39 ea 11/12 00:58 Order name: IV Saline Lock; Complete Time: 01:15 ea 11/12 00:58 Order name: Labs collected and sent; Complete Time: 01:15 ea 11/12 00:58 Order name: NPO; Complete Time: 01:15 ea 11/12 01:10 Order name: HCG, Quantitative; Complete Time: 04:57 EDMS 11/12 01:41 Order name: Urine Dipstick-Ancillary; Complete Time: 02:17 EDMS 11/12 01:41 Order name: Urine --Ancillary (enter results); Complete Time: 02:17 mw2 11/12 02:39 Order name: US Transvaginal Ob mh7 11/12 00:58 Order name: Urine Dipstick-Ancillary (obtain specimen); Complete Time: 01:42 ea Administered Medications: No medications were administered Disposition: 11/12/20 05:03 Discharged to Home. Impression: Threatened . - Condition is Stable. - Discharge Instructions: Threatened Miscarriage, [id number]. - Medication Reconciliation Form, Thank You Letter, Antibiotic Education, Prescription Opioid Use form. - Follow up: Private Physician; When: 1 - 2 days; Reason: Worsening of condition, Recheck today's complaints, Continuance of care, Re-evaluation by your physician. Follow up: Kirti Rivers MD; When: 1 - 2 days; Reason: Worsening of condition, Recheck today's complaints. - Problem is new. - Symptoms have improved. Signatures: Dispatcher [employer] Brenda Estrada RN RN ea Roque, Raymond, RN RN rr5 Ryan Baca MD MD mh7 Corrections: (The following items were deleted from the chart) 05:10 05:03 11/12/2020 05:03 Discharged to Home. Impression: Threatened . Condition ea is Stable. Forms are Medication Reconciliation Form, Thank You Letter, Antibiotic Education, Prescription Opioid Use. Follow up: Private Physician; When: 1 - 2 days; Reason: Worsening of condition, Recheck today's complaints, Continuance of care, Re-evaluation by your physician. Follow up: Kirti Ignacio; When: 1 - 2 days; Reason: Worsening of condition, Recheck today's complaints. Problem is new. Symptoms have improved. mh7
[2020-11-12 05:35] VITALS: TEMP 97.6
[2020-11-12 05:37] VITALS: O2SAT 99
[2020-11-12 05:38] VITALS: BP 120/60
--- NOTE | 2020-11-12 11:35 | RAD REPORT ---
EXAM DESCRIPTION: US - Transvaginal OB - 11/12/2020 4:57 am CLINICAL HISTORY: with vaginal bleeding COMPARISON: November 03, 2020 FINDINGS: The uterus measures 8 x 5 x 6 centimeters. A 5 millimeters sac has developed within the e ndometrium. A yolk sac is not seen. No pole visualized. Ovaries are normal in size and echotexture.. A 2 centimeter right ovarian cyst The right and left at adnexa unremarkable No significant free fluid IMPRESSION: Development of a gestational sac within the endometrium. Estimated gestational age 4 wee ks 2 days ASHLEY 07/20/2021. Serial beta HCG levels and followup endovaginal sonogram in 1 week recommended for re-evaluation
== END 2020-11-12 05:10 | disposition home or self-care (01) ==
LOC: ER 00:21
DX: O20.0 Threatened abortion (principal); Z3A.01 Less than 8 weeks gestation of pregnancy
CPT/HCPCS: 36415; 76817; 80048; 80076; 81003; 81025; 83690; 84702; 85025; 86900; 86901; 99283

== ENCOUNTER 2022-05-26 10:15 | Emergency (ER) | payer OTHER ==
--- OUTSIDE RECORDS SUMMARY | 2022-05-26 10:26 | XMS REPORT | Continuity of Care Document ---
:2000 Author Organization [facility] Address [address] [place] [address] Dr. Claire. [address] [place] [address] Care Team Providers Name Role Phone PCP, PATIENT DOES NOT HAVE A Primary Care Physician UnavailYenni Jerez MD Attending Clinician YENNI OCLLINS Attending Clinician Unavailable Christina Delgado PA-C Attending Clinician 2, [facility] Lab Attending Clinician Unavailable Doctor Unassigned, [place] Attending Clinician Unavailable Nurse, [facility] Attending Clinician Unavailable Geronimo Campbell CRNA Attending Clinician Xenia Lakhani MD Attending Clinician TI HAYS Attending Clinician Unavailable Ti Hays MD Attending Clinician CHRISTINA DELGADO Attending Clinician Unavailable Tonie Chiang RN Attending Clinician Unavailable Pob, Adc Lab Main Attending Clinician Unavailable Ultrasound, Ang-Mfm Attending Clinician Unavailable Ashtyn Peterson MD Attending Clinician [phone] ASHTYN PETERSON Attending Clinician Unavailable EMELIA MARTIN Attending Clinician Unavailable Emelia Martin MD Attending Clinician Power Thrasher MD Attending Clinician YENNI COLLINS Admitting Clinician Unavailable Yenni Collins MD Admitting Clinician TI HAYS Admitting Clinician Unavailable Ti Hays MD Admitting Clinician Payers Payer Name Policy Type Policy Number Effective Date Expiration Date Erica chun [facility] [id number] 2020 00:00:00 MEDICAID [facility] [id number] 2020 00:00:00 Problems Condition Condition Condition Status Onset Resolution Last Treating Co mments Source Name Details Category Date Date Treatment Clinician Date Vitamin D Vitamin D Disease Active Uni vers deficiency deficiency - it y of 00:00: [place] 00 Medical Branch Anemia, Anemia, Disease Active Univers unspecifie unspecifie 4-28 it y of d type d type 00:00: [place] [address] Medical Branch Nexplanon Nexplanon Disease Active Uni vers in place in place 3-24 ity of 00:00: [place] [address] Medical [place] History of History of Disease Active U nivers pre-eclamp pre-eclamp 3-17 it y of jos jos 00:00: [place] [address] Medical Branch Encounter Encounter Disease Active Uni vers for for 3-17 ity of screening screening 00:00: [facility] s for for 00 Medical maternal maternal Branch depression depression Obesity, Obesity, Disease Active Unive rs Class III, Class III, 8-13 it y of BMI BMI 00:00: [place] 40-49.9 40-49.9 00 Medical (morbid (morbid Branch obesity) obesity) Allergies, Adverse Reactions, Alerts Allergy Allergy Status Severity Reaction(s) Onset Inactive Treating Comm ents Source Name Type Date Date Clinician NO KNOWN Drug Active Univers ALLERGIE Class ity of S [facility] Social History Social Habit Start Date Stop Date Quantity Comments Source Exposure to 2021-12-10 2021-12-20 Not sure [facility] SARS-CoV-2 00:00:00 08:34:00 [facility] (event) [place] Tobacco use and 2021-12-20 2021-12-20 Smokeless tobacco Un iversity of exposure 00:00:00 00:00:00 non-user [facility] Alcohol intake 2021-12-20 2021-12-20 Ex-drinker [facility] 00:00:00 00:00:00 (finding) [facility] Sex Assigned At 2000 2000 Universit y of 00:00:00 00:00:00 [facility] Smoking Status Start Date Stop Date Source Never smoked tobacco [facility] Medications Ordered Filled Start Stop Current Ordering Indication Dosage Frequency Signature Comments Components Source Medication Medication Date Date Medication? Clinician (SIG) Name Name sulfamethox 2- No [id number] 1{tbl} Take 1 Univers azole-trime 09-07- tablet by it y of thoprim 00:00: 00:00 mouth 2 [place] (BACTRIM 00 :00 (two) Medical DS) 800-160 times Branch mg per daily. tablet ferrous Yes [id number] 325mg Take 1 Un gerhard sulfate 4-21 tablet by ity of (IRON, 00:00: mouth 2 [place] FERROUS 00 (two) Medical SULFATE,) times Branch 325 mg (65 daily. mg iron) tablet ascorbic Yes [id number] 500mg Take 1 U nivers acid, 4-21 tablet by ity of vitamin C, 00:00: mouth [place] 500 mg 00 daily. Medical tablet Branch polycarboph Yes [id number] 625mg Take 1 Univers il 4-21 tablet by ity of (FIBERCON) 00:00: mouth [place] 625 mg 00 daily. Medical tablet Branch Cholecalcif Yes [id number] 2000U Take 1 Univers ashley, 4-21 tablet by ity of Vitamin D3, 00:00: mouth [place] (VITAMIN 00 daily. Medical D3) 50 mcg Branch (2,000 unit) tablet docusate 2- No [id number] 100mg Take 1 Univers (COLACE) 09-06 capsule by ity of 100 mg 00:00: 00:00 mouth [place] capsule 00 :00 daily as Medical needed for Branch Constipati on. triamcinolo Yes [id number] Apply to Univers ne 0.1 % 09-04 area(s) 3 ity of lotion 00:00: (three) [place] 00 times Medical daily. Branch Vital Signs Vital Name Observation Time Observation Value Comments Source Systolic blood 2021-12-20 13:49:00 119 mm[Hg] Univer sity of pressure [facility] Diastolic blood 2021-12-20 13:49:00 86 mm[Hg] Unive rsity of pressure [facility] Heart rate 2021-12-20 13:49:00 88 /min [facility] Body temperature 2021-12-20 13:49:00 37.06 Shari Univ [facility] Respiratory rate 2021-12-20 13:49:00 18 /min [facility] height 2021-12-20 13:49:00 160 cm [facility] Body weight 2021-12-20 13:49:00 102.513 kg [facility] BMI 2021-12-20 13:49:00 40.03 kg/m2 [facility] Procedures This patient has no known procedures. Encounters Start End Encounter Admission Attending Care Care Encounter Source Date/Time Date/Time Type Type Clinicians Facility Department ID 2021-06-04 Outpatient X [facility] TARA [id number] Univers [facility] 2021-[facility]-01 Outpatient P [facility] TARA [id number] Univers 18:17:[facility] 2021-12-20 2021-12-20 Office Yenni Collins [facility] [id number] Univers 08:30:00 09:14:26 Visit Corby YOUNG 350.1.13.10 i [facility] 4.2.7.2.686 [place] s PROFESSIO [id number] Nd dical [address] 2021-12-20 2021-12-20 Outpatient YENNI JOHN [facility] [id number] Univers 08:30:00 09:14:26 ity [facility] 2021-12-20 2021-12-20 Outpatient YENNI JOHN [facility] [id number] Univers 08:30:00 08:30:[facility] 2021-11-07 2021-11-07 Outpatient YENNI JOHN [facility] [id number] Univers 13:30:00 13:30:00 ity [facility] 2021-10-24 2021-10-24 Outpatient YENNI JOHN [facility] [id number] Univers 10:30:00 10:30:00 ity of [facility] 2021-09-13 2021-09-13 Outpatient R YENNI COLLINS [facility] [id number] Univers 13:15:00 13:46:00 ity of [facility] 2021-09-13 2021-09-13 Office Yenni Collins [facility] [id number] Univers 13:15:00 13:46:00 Visit Corby MORALESLOTTIE 350.1.13.10 i ty of [place] 4.2.7.2.686 [place] [id number] Nd dical NAL [address] [facility] 2021-09-13 2021-09-13 Outpatient R YENNI COLLINS [facility] [id number] Univers 13:15:00 13:15:00 ity of [facility] 2021-09-07 2021-09-07 Case JOSE Delgado [id number] Univers 00:00:00 00:00:00 Management Christina PEDIATRIC 350.1.13.10 ity of [place]2.7.2.686 [place] [id number] [place] [address] Branch [facility] 2021-09-06 2021-09-06 Case Yenni Collins [facility] [id number] Univers 00:00:00 00:00:00 Management Corby YOUNG 350.1.13.10 ity of [place] 4.2.7.2.686 [place] [id number] Nd dical NAL 134 [facility] 2021-09-05 2021-09-05 Van Cdl Driver 2, Adc Lab [facility] 1.2.840.114 [id number] Univers 08:15:00 08:30:00 Visit Yenni Collins 350.1.13.10 ity of [place] 4.2.7.2.686 [place] [id number] Nd dical NAL 353 [facility] 2021-09-05 2021-09-05 Outpatient R [facility] [id number] Univers 08:15:00 08:15:00 ity of [facility] 2021-09-05 2021-09-05 Outpatient R COLLINS, [facility] [id number] Univers 08:15:00 08:15:00 ity [facility] 2021-09-04 2021-09-04 [facility] [id number] Univers 13:30:00 14:13:51 Visit Corby YOUNG 350.1.13.10 i ty of [place] 4.2.7.2.686 [place] [id number] [address] 2021-09-04 2021-09-04 Outpatient R KARINA [facility] [id number] Univers 13:30:00 14:13:51 ity of [facility] 2021-09-04 2021-09-04 Outpatient R KARINA [facility] [id number] Univers 13:30:00 13:30:00 ity of [facility] 2021-08-30 2021-08-30 Outpatient R KARINA [facility] [id number] Univers 13:00:00 13:00:00 ity of [facility] 2021-08-09 2021-08-09 Office Karina [facility] [id number] Univers 13:30:00 14:45:29 Visit Corby YOUNG 350.1.13.10 i ty of [place] 4.[place].2.686 [place] [id number] [address] 2021-08-09 2021-08-09 Outpatient R KARINA [facility] [id number] Univers 13:30:00 14:45:29 ity of [facility] 2021-08-09 2021-08-09 Outpatient R KARINA [facility] [id number] Univers 13:30:00 13:30:00 ity [facility] 2021-08-09 2021-08-09 Orders Doctor COSTA 1.2.840.114 [id number] Univers 00:00:00 00:00:00 Only Unassigned, CHARITO 350.1.13.10 ity of [place] [facility] 4.2.7.2.686 Nikita as [id number] [address] 2021-08-02 2021-08-02 Outpatient R YENNI COLLINS [facility] [id number] Univers 11:00:00 11:53:24 ity of [facility] 2021-08-02 2021-08-02 Routine Yenni Collins [facility] [id number] Univers 11:00:00 11:53:24 Cam [place] 350.1.13.10 ity of Visit [place].7.2.[place] [phone] Nd dical NAL [address] [place] [address] 2021-07-31 2021-07-31 Telephone Yenni Collins [facility] 1.2.840.114 [id number] Univers 00:00:00 00:00:00 Cam [place] 350.1.13.10 i ty of [place] 4.2.7.2.686 [place] [id number] Nd dical NAL [address] [place] [address] 2021-07-16 2021-07-16 Outpatient R YENNI COLLINS [facility] [id number] Univers 10:30:00 10:54:06 ity of [facility] 2021-07-16 2021-07-16 Nurse Nurse, [facility] 1.2.840.114 [id number] Univers 10:30:00 10:54:06 Visit Yenni Collins Corby YOUNG 350.1.13.10 ity of [place] 4.2.7.2.[place] [id number] Nd dical NAL [address] [place] [address] 2021-07-11 2021-07-13 Inpatient P YENNI COLLINS [facility] T[facility] [id number] Univers 04:06:00 10:40:00 ity of [facility] 2021-07-11 2021-07-13 [facility] Yenni Collins [facility] 1.2.840.114 [id number] Univers 04:06:00 10:40:00 Encounter Cam [place] 350.1.13.10 ity [place].2.7.2.[place] [id number] [address] 2021-07-12 2021-07-12 Anesthesia Shannan [facility] 1.2.840.114 [id number] Univers 20:03:09 20:03:09 Event Geronimo HANNAH 350.1.13.10 i ty of [place] 4.2.7.2.686 [facility] [id number] [address] 2021-07-11 2021-07-11 Anesthesia Geronimo Campbell [facility] 1.2.840.11 [id number] Univers 13:56:00 22:11:00 Event Xenia Lakhani HANNAH 350.1.13.10 ity of [place] 4.2.7.2.686 [facility] [id number] [address] 2021-07-11 2021-07-11 Inpatient P YENNI COLLINS [facility] TARA [id number] Univers 04:06:00 04:06:00 ity of [facility] 2021-07-04 2021-07-04 Outpatient R YENNI COLLINS [facility] [id number] Univers 09:45:00 10:23:10 ity of [facility] 2021-07-04 2021-07-04 Routine Karina [facility] 1.2.047.969 [id number] Univers 09:45:00 10:23:10 Cam HANNAH 350.1.13.10 ity of Visit [place] 4.2.7.2.686 [facility] PROFESSIO [id number] Nd dical NAL 134 [facility] 2021-07-02 2021-07-03 Outpatient P TI HAYS [facility] T[facility] [id number] Univers 23:43:00 02:15:00 ity of [facility] 2021-07-02 2021-07-03 Hospital Ti Hays [facility] 1.2.840.114 [id number] Univers 23:43:00 02:15:00 Encounter HANNAH 350.1.13.10 ity of [place] 4.2.7.2.686 [facility] [id number] [address] 2021-07-02 2021-07-02 Orders Doctor COSTA 1.2.840.114 [id number] Univers 00:00:00 00:00:00 Only Unassigned, CHARITO 350.1.13.10 ity of [place] [facility] 4.2.7.2.686 Nikita as [id number] [address] 2021-06-27 2021-06-27 Outpatient R DANNY [facility] [id number] Univers 10:45:00 11:10:58 CHRISTINA ity of [facility] 2021-06-27 2021-06-27 Routine Danny [facility] 1.2.016.591 [id number] Univers 10:45:00 11:10:58 Christina YOUNG 350.1.13.10 ity of Visit [place] 4[place].2.[place] [id number] Nd dical NAL 134 [facility] 2021-06-18 2021-06-18 Outpatient R KARINA YENNI [facility] [id number] Univers 09:15:00 09:15:00 ity of [facility] 2021-06-18 2021-06-18 Van Cdl Driver 2, Adc Lab [facility] 1.2.840.114 [id number] Univers 09:15:00 09:15:00 Visit Yenni Collins 350.1.13.10 ity [place].2.[place] [id number] Nd dical NAL 353 [facility] 2021-06-14 2021-06-14 Outpatient R YENNI COLLINS [facility] [id number] Univers 13:15:00 14:26:54 ity of [facility] 2021-06-14 2021-06-14 Routine Karina [facility] [id number] Univers 13:15:00 14:26:54 Corby YOUNG 350.1.13.10 ity of [place] 4[place].2.[place] [id number] Nd dical NAL 134 [facility] 2021-06-11 2021-06-11 Orders Doctor COSTA 1.2.840.114 [id number] Univers 00:00:00 00:00:00 Only Unassigned, CHARITO 350.1.13.10 ity of [place] [facility] 4.2.7.2.686 Nikita as [id number] [address] 2021-06-05 2021-06-05 [facility] 1.2.840.114 [id number] Univers 00:00:00 00:00:00 Christina YOUNG 350.1.13.10 i ty [place].2.[place] [id number] [address] 2021-06-04 2021-06-04 Outpatient X ALEJANDRA COLLINSEN [facility] [id number] Univers 14:22:00 18:20:00 ity of [facility] 2021-06-04 2021-06-04 Emergency Karina Yenni [facility] 1.2.840.114 [id number] Univers 14:22:00 18:20:00 Corby YOUNG 350.1.13.10 i ty [place] 4.2.7.2.[place] [id number] [facility] 083 [place] 2021-06-04 2021-06-04 Nurse JULISSA Chiang 1.2.840.114 [id number] Univers 00:00:00 00:00:00 Triage Tonie MCNEILL 350.1.13.10 it y of HOSPITAL 4.2.7.2.686 Nikita as [id number] [facility] 019 [place] 2021-06-04 2021-06-04 Orders Doctor JULISSA 1.2.840.114 [id number] Univers 00:00:00 00:00:00 Only Unassigned, CHARITO 350.1.13.10 ity of [place] [facility] 4.2.7.2.686 Nikita as [id number] [facility] 009 [place] 2021-05-30 2021-05-30 Routine [facility] [id number] Univers 11:15:00 11:30:00 Christina YOUNG 350.1.13.10 ity of [place] 4[place].2.[place] [id number] [address] 2021-05-30 2021-05-30 Outpatient R DANNY [facility] [id number] Univers 11:15:00 11:15:00 CHRISTINA ity [facility] 2021-05-30 2021-05-30 Orders Doctor JULISSA 1.2.840.114 [id number] Univers 00:00:00 00:00:00 Only Unassigned, CHARITO 350.1.13.10 ity of [facility] 4.2.7.2.686 Nikita as [id number] [address] 2021-05-29 2021-05-29 Van Cdl Driver Bennett, Adc Lab Main [facility] 1.2.8 40.114 [id number] Univers 10:00:00 10:15:00 Visit Christina Delgado GHENT 350.1.13.10 ity [facility] 4.2.7.2.[place] [id number] [address] 2021-05-29 2021-05-29 Outpatient R DANNY [facility] [id number] Univers 10:00:00 10:00:00 CHRISTINA ity [facility] 2021-05-29 2021-05-29 Van Cdl Driver 2, Adc Lab [facility] 1.2.840.114 [id number] Univers 09:45:00 09:45:00 Visit CollinsYenni Corby GHENT 350.1.13.10 ity [facility] 4.2.7.2.[place] [id number] [address] 2021-05-22 2021-05-22 Outpatient R [facility] [id number] Univers 09:00:00 09:00:00 ity of [facility] 2021-05-21 2021-05-21 Van Cdl Driver Ultrasound, [facility] 1.2 .840.114 [id number] Univers 09:00:00 09:45:00 Visit Ashtyn Peterson [employer] 350.1. 13.10 ity [facility] 4.2.7.2.686 Nikita as MATERNAL [id number] [facility] ical & CHILD [address] [place] [address] 2021-05-21 2021-05-21 Outpatient P BRADLEY [facility] [id number] Univers 09:00:00 09:00:00 KARINA it y of [place] [facility] 2021-05-16 2021-05-16 Outpatient R YENNI COLLINS [facility] [id number] Univers 11:15:00 12:20:47 ity of [facility] 2021-05-16 2021-05-16 Routine Yenni Collins [facility] 1.2.002.218 [id number] Univers 11:15:00 12:20:47 Corby YOUNG 350.1.13.10 ity of [place] 4[place].2.[place] [id number] [address] 2021-05-01 2021-05-01 Outpatient P MYA [facility] TARA [id number] Univers 16:57:00 18:10:00 EMELIA itrell [facility] 2021-05-01 2021-05-01 Hospital Yenni Collins [facility] 1.2.840.114 [id number] Univers 16:57:00 18:10:00 Encounter Emelia Martin 350.1.13.10 ity [place].2.[place] [id number] [address] 2021-05-01 2021-05-01 Telephone Yenni Collins [facility] 1.2.840.114 [id number] Univers 00:00:00 00:00:00 Cam [place] 350.1.13.10 i ty [facility] 4.2.7.2.[place] [id number] [address] 2021-04-24 2021-04-24 Telephone Yenni Collins [facility] 1.2.840.114 [id number] Univers 00:00:00 00:00:00 Cam [place] 350.1.13.10 i ty of [place] 4.2.7.2.[place] [id number] [address] 2021-04-19 2021-04-19 Outpatient R YENNI COLLINS [facility] [id number] Univers 11:00:00 11:00:00 ity [facility] 2021-04-19 2021-04-19 Van Cdl Driver 2, Adc Lab [facility] 1.2.840.114 [id number] Univers 08:39:38 08:54:38 Visit Christina Delgado 350.1.13.10 ity [facility] 4.2.7.[place] [id number] [facility] [address] [facility] 2021-04-19 2021-04-19 Outpatient R DANNY [facility] [id number] Univers 08:45:00 08:45:00 CHRISTINA bowen [facility] 2021-04-19 2021-04-19 Case [facility] [id number] Univers 00:00:00 00:00:00 Management Christina YOUNG 350.1.13.10 ity [facility] 4.2.7.[place] [id number] [address] 2021-04-18 2021-04-18 Routine [facility] [id number] Univers 10:54:04 11:34:57 Christina YOUNG 350.1.13.10 ity of [facility] 4.2.7.2.[place] [id number] [address] 2021-04-18 2021-04-18 Outpatient Yang DELGADO [facility] [id number] Univers 10:45:00 11:34:57 CHRISTINA bowen [facility] 2021-04-17 2021-04-17 Telephone Yenni Collins [facility] 1.2.840.114 [id number] Univers 00:00:00 00:00:00 Corby YOUNG 350.1.13.10 i ty of [place] 4.2.7.2.[place] [id number] [address] 2021-03-23 2021-03-23 Routine Yenni Collins [facility] 1.2.840.114 [id number] Univers 09:35:52 10:10:10 Corby CUELLO 350.1.13.10 i ty of Visit WOMEN'S 4.2.7.2.[place] [id number] [address] 2021-03-23 2021-03-23 Outpatient R KARINA YENNI [facility] [id number] Univers 09:30:00 10:10:10 ity of [facility] 2021-03-21 2021-03-21 Van Cdl Driver Leticia Guajardo [facility] 1.2.8 40.114 [id number] Univers 13:29:04 13:44:04 Visit [facility] Collins [facility] 350.1.13.10 ity [facility] 4.2.7.2.[place] [id number] Nd dical [address] 2021-03-21 2021-03-21 Outpatient R KARINA YENNI [facility] [id number] Univers 13:30:00 13:30:00 ity of [facility] 2021-03-21 2021-03-21 Orders Doctor JULISSA 1.2.840.114 [id number] Univers 00:00:00 00:00:00 Only Unassigned, CHARITO 350.1.13.10 ity of [place] [facility] 4.2.7.2.686 Nikita as [id number] [address] 2021-02-26 2021-02-26 Van Cdl Driver Ultrasound, [facility]er[facility] 1.2 .840.114 [id number] Univers 14:59:37 15:59:37 Visit Power Tharsher [employer] 350.1.13.1 0 ity of [facility] 4.2.7.2.686 Nikita as MATERNAL [phone] Med ical & CHILD [address] [place] [address] 2021-02-26 2021-02-26 Outpatient P [facility] [id number] Univers 15:00:00 15:00:00 ity [facility] 2021-02-23 2021-02-23 Routine Karina Yenni [facility] 1.2.840.114 [id number] Univers 09:17:02 09:50:27 Corby Cuello 350.1.13.10 i ty of Visit [place]'s [place].2.[place] [id number] [address] 2021-02-23 2021-02-23 Outpatient R YENNI COLLINS [facility] [id number] Univers 09:15:00 09:15:00 ity [facility] 2021-02-19 2021-02-19 Telephone Yenni Collins [facility] 1.2.840.114 [id number] Univers 00:00:00 00:00:00 Cam Hannah 350.1.13.10 i ty of [place] Profess[place] [id number] Nd dical nal [address] [place] [address] 2021-01-26 2021-01-26 Routine Karina [facility] 1.2.840.114 [id number] Univers 13:04:32 13:25:43 Cam [place] 350.1.13.10 i ty of Visit [place]'s [place].2.[place] [id number] [address] 2021-01-26 2021-01-26 Outpatient R KARINA [facility] [id number] Univers 13:00:00 13:00:00 ity [facility] 2021-01-26 2021-01-26 Orders Doctor JULISSA 1.2.840.114 [id number] Univers 00:00:00 00:00:00 Only Unassigned, CHARITO 350.1.13.10 ity of [place] [facility] 4.2.7.2.686 Nikita as [id number] [place] [address] Branch 2021-01-02 2021-01-02 Outpatient R KARINA YENNI [facility] [id number] Univers 14:00:00 14:00:00 ity [facility] 2020-12-29 2020-12-29 Outpatient R KARINA [facility] [id number] Univers 12:15:00 12:15:00 ity [facility] 2019-03-29 2019-03-29 Emergency E HH [facility] 7[address] [facility] 21:51:00 21:51:00 Results This patient has no known results.
[2022-05-26] MEDS ORDERED: ONDANSETRON 4 MG/2 ML VIAL ONE (10:31)
[2022-05-26 10:34] LABS: Urine Blood 1+ (Negative); Urine Glucose Negative (Negative); Urine Protein 3+ (Negative)
[2022-05-26 10:47] LABS: Absolute Lymphocytes (CBC) 1.4 K/uL (0.7-4.9); Hematocrit 39.6 % (36.0-45.0); Lymphocytes % 12.9 % (15.3-44.8); MCV 88.3 fL (80-100); MPV 7.8 fL (7.6-11.3); RBC Red Blood Cell Count 4.48 M/uL (3.86-4.86)
[2022-05-26 10:51] LABS: Protime INR 0.94
[2022-05-26 10:52] LABS: Barbiturates NEGATIVE (NEGATIVE); Benzodiazepines NEGATIVE (NEGATIVE); Cocaine NEGATIVE (NEGATIVE); METHAMPHETAM NEGATIVE (NEGATIVE); Methadone NEGATIVE (NEGATIVE); Opiates NEGATIVE (NEGATIVE); Phencyclidine NEGATIVE (NEGATIVE); THC Cannibis NEGATIVE (NEGATIVE)
[2022-05-26 10:59] LABS: Potassium 3.7 mmol/L (3.5-5.1)
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
[2022-05-26] MEDS ORDERED: NA CHLORIDE 0.9% 1,000 ML ONE ×2 (11:51→13:26)
[2022-05-26] MEDS ORDERED: IBUPROFEN 400 MG TAB ONE (13:10)
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
[2022-05-26 16:02] VITALS: TEMP 99.2
[2022-05-26 16:14] VITALS: BP 124/87; O2SAT 100
== END 2022-05-26 15:54 | disposition home or self-care (01) ==
LOC: ER 10:15
DX: S00.83XA Contusion of other part of head, initial encounter (principal); S00.12XA Contusion of left eyelid and periocular area, initial encounter; F10.929 Alcohol use, unspecified with intoxication, unspecified
CPT/HCPCS: 96361; 85025; 80048; 36415; 80320; 81025; 85610; 85730; 81003; 80307; 70450; 72125; 71260; 70486; 76377; 74177; 51702; 96374; 99284; Q9967; J7030 ×2; J2405

== ENCOUNTER 2022-09-30 03:18 | Emergency (ER) | payer OTHER ==
--- OUTSIDE RECORDS SUMMARY | 2022-09-30 03:22 | XMS REPORT | Continuity of Care Document ---
:2000 Author Organization [facility] Address [address] [facility]. [address] [place] [address] Care Team Providers Name Role Phone PCP, PATIENT DOES NOT HAVE A Primary Care Physician UnavailYenni Jerez MD Attending Clinician YENNI COLLINS Attending Clinician Unavailable Christina Delgado PA-C Attending Clinician 2, [facility] Lab Attending Clinician Unavailable Doctor Unassigned, [place] Attending Clinician Unavailable Nurse, [facility] Attending Clinician Unavailable Geronimo Campbell CRNA Attending Clinician Xenia Lakhani MD Attending Clinician TI HAYS Attending Clinician Unavailable Ti Hays MD Attending Clinician CHRISTINA DELGADO Attending Clinician Unavailable Tonie Chiang RN Attending Clinician Unavailable Pob, Adc Lab Main Attending Clinician Unavailable Ultrasound, Ang-Mfm Attending Clinician Unavailable Ashtyn Peterson MD Attending Clinician [phone] ASHTYN PETERSON Attending Clinician Unavailable EMELIA MARTIN Attending Clinician Unavailable Emelia Martin MD Attending Clinician Power Thrasher MD Attending Clinician YENNI COLLINS Admitting Clinician Unavailable Yenni Collins MD Admitting Clinician TI HAYS Admitting Clinician Unavailable Ti Hays MD Admitting Clinician Payers Payer Name Policy Type Policy Number Effective Date Expiration Date Erica chun [facility] [id number] 2020 00:00:00 MEDICAID [place] [facility] [id number] 2020 00:00:00 Problems Condition Condition Condition Status Onset Resolution Last Treating Co mments Source Name Details Category Date Date Treatment Clinician Date Vitamin D Vitamin D Disease Active Uni vers deficiency deficiency - it y of 00:00: [place] 00 Medical Branch Anemia, Anemia, Disease Active Univers unspecifie unspecifie 4-28 it y of d type d type 00:00: [place] [address] Medical Branch Nexplanon Nexplanon Disease Active Uni vers in place in place 3-24 ity of 00:00: [place] [address] Medical [place] History of History of Disease Active U nivers pre-eclamp pre-eclamp 3-17 it y of jos jos 00:00: [place] [address] Medical Branch Encounter Encounter Disease Active Uni vers for for 3-17 ity of screening screening 00:00: [facility] s for for 00 Medical maternal maternal Branch depression depression Obesity, Obesity, Disease Active Unive rs Class III, Class III, 8-13 it y of BMI BMI 00:00: [place] 40-49.9 40-49.9 00 Medical (morbid (morbid Branch obesity) obesity) Allergies, Adverse Reactions, Alerts Allergy Allergy Status Severity Reaction(s) Onset Inactive Treating Comm ents Source Name Type Date Date Clinician NO KNOWN Drug Active Univers ALLERGIE Class ity of S [facility] Social History Social Habit Start Date Stop Date Quantity Comments Source Exposure to 2021-12-10 2021-12-20 [facility] sure [facility] SARS-CoV-2 00:00:00 08:34:00 [facility] (event) [place] Tobacco use and 2021-12-20 2021-12-20 Smokeless tobacco Un iversity of exposure 00:00:00 00:00:00 non-user [facility] Alcohol intake 2021-12-20 2021-12-20 [facility] 00:00:00 00:00:00 (finding[facility] Sex Assigned At 2000 2000 Universit y of 00:00:00 00:00:00 [facility] Smoking Status Start Date Stop Date Source Never smoked tobacco [facility] Medications Ordered Filled Start Stop Current Ordering Indication Dosage Frequency Signature Comments Components Source Medication Medication Date Date Medication? Clinician (SIG) Name Name sulfamethox 2- No [id number] 1{tbl} Take 1 Univers azole-trime 09-07- tablet by it y of thoprim 00:00: 00:00 mouth 2 [place] (BACTRIM 00 :00 (two) Medical DS) 800-160 times Branch mg per daily. tablet ferrous Yes [id number] 325mg Take 1 Un gerhard sulfate 4-21 tablet by ity of (IRON, 00:00: mouth 2 [place] FERROUS 00 (two) Medical SULFATE,) times Branch 325 mg (65 daily. mg iron) tablet ascorbic Yes [id number] 500mg Take 1 U nivers acid, 4-21 tablet by ity of vitamin C, 00:00: mouth [place] 500 mg 00 daily. Medical tablet Branch polycarboph Yes [id number] 625mg Take 1 Univers il 4-21 tablet by ity of (FIBERCON) 00:00: mouth [place] 625 mg 00 daily. Medical tablet Branch Cholecalcif Yes [id number] 2000U Take 1 Univers ashley, 4-21 tablet by ity of Vitamin D3, 00:00: mouth [place] (VITAMIN 00 daily. Medical D3) 50 mcg Branch (2,000 unit) tablet docusate 2- No [id number] 100mg Take 1 Univers (COLACE) 09-06 capsule by ity of 100 mg 00:00: 00:00 mouth [place] capsule 00 :00 daily as Medical needed for Branch Constipati on. triamcinolo Yes [id number] Apply to Univers ne 0.1 % 09-04 area(s) 3 ity of lotion 00:00: (three) [place] 00 times Medical daily. Branch Vital Signs Vital Name Observation Time Observation Value Comments Source Systolic blood 2021-12-20 13:49:00 119 mm[Hg] Univer sity of pressure [facility] Diastolic blood 2021-12-20 13:49:00 86 mm[Hg] Unive rsity of pressure [facility] Heart rate 2021-12-20 13:49:00 88 /min [facility] Body temperature 2021-12-20 13:49:00 37.06 Shari [facility] Respiratory rate 2021-12-20 13:49:00 18 /min [facility] [place] [facility] Body height 2021-12-20 13:49:00 160 cm [facility] Body weight 2021-12-20 13:49:00 102.513 kg [facility] BMI 2021-12-20 13:49:00 40.03 kg/m2 [facility] Procedures This patient has no known procedures. Encounters Start End Encounter Admission Attending Care Care Encounter Source Date/Time Date/Time Type Type Clinicians Facility Department ID 2021-06-04 Outpatient X [facility] TARA [id number] [facility] 2021-05-01 Outpatient P [facility] TARA [id number] [facility] 2021-12-20 2021-12-20 Office Yenni Collins [facility] [id number] Univers 08:30:00 09:14:26 Visit Corby YOUNG 350.1.13.10 i [facility] 4.2.7.2.686 [place] s PROFESSIO [id number] Wy dical [address] 2021-12-20 2021-12-20 Outpatient YENNI JOHN [facility] [id number] Univers 08:30:00 09:14:26 ity [facility] 2021-12-20 2021-12-20 Outpatient YENNI JOHN [facility] [id number] Univers 08:30:00 08:[facility]00 [facility] 2021-11-07 2021-11-07 Outpatient YENNI JOHN [facility] [id number] Univers 13:30:00 13:30:00 ity [facility] 2021-10-24 2021-10-24 Outpatient YENNI JOHN [facility] [id number] Univers 10:30:00 10:30:00 it[facility] 2021-09-13 2021-09-13 Outpatient R YENNI COLLINS [facility] [id number] Univers 13:15:00 13:46:00 ity [facility] 2021-09-13 2021-09-13 Office Yenni Collins [facility] [id number] Univers 13:15:00 13:46:00 Visit Corby MORALESLOTTIE 350.1.13.10 i ty of [place] 4.2.7.2.686 [place] [id number] Wy dical NAL 134 [facility] 2021-09-13 2021-09-13 Outpatient R YENNI COLLINS [facility] [id number] Univers 13:15:00 13:15:00 ity [facility] 2021-09-07 2021-09-07 Case JOSE Delgado [id number] [id number] Univers 00:00:00 00:00:00 Management Christina PEDIATRIC 350.1.13.10 ity of S [place]2.7.2.[place] [id number] [place] [address] Branch [facility] 2021-09-06 2021-09-06 Case Yenni Collins [facility] [id number] Univers 00:00:00 00:00:00 Management Corby YOUNG 350.1.13.10 ity of [place] 4.2.7.2.[place] [id number] Wy dical NAL 134 [facility] 2021-09-05 2021-09-05 Magnet Valve Assembler 2, Adc Lab [facility] 1.2.840.114 [id number] Univers 08:15:00 08:30:00 Visit Yenni Collins 350.1.13.10 ity of [place] 4.2.7.2.686 [place] [id number] Wy dical NAL 353 [facility] 2021-09-05 2021-09-05 Outpatient R [facility] [id number] Univers 08:15:00 08:15:00 ity [facility] 2021-09-05 2021-09-05 Outpatient R COLLINS, [facility] [id number] Univers 08:15:00 08:15:00 ity [facility] 2021-09-04 2021-09-04 [facility] [id number] Univers 13:30:00 14:13:51 Visit Corby YOUNG 350.1.13.10 i ty of [place] 4.2.7.2.686 [place] [id number] [address] 2021-09-04 2021-09-04 Outpatient R KARINA [facility] [id number] Univers 13:30:00 14:13:51 ity [facility] 2021-09-04 2021-09-04 Outpatient R KARINA [facility] [id number] Univers 13:30:00 13:30:00 ity [facility] 2021-08-30 2021-08-30 Outpatient R KARINA [facility] [id number] Univers 13:00:00 13:00:00 ity of [facility] 2021-08-09 2021-08-09 Office Karina [facility] [id number] Univers 13:30:00 14:45:29 Visit Corby YOUNG 350.1.13.10 i ty of [place] 4.2.7.2.[place] [id number] [address] 2021-08-09 2021-08-09 Outpatient R KARINA [facility] [id number] Univers 13:30:00 14:45:29 ity of [facility] 2021-08-09 2021-08-09 Outpatient R KARINA [facility] [id number] Univers 13:30:00 13:30:00 ity [facility] 2021-08-09 2021-08-09 Orders Doctor COSTA 1.2.840.114 [id number] Univers 00:00:00 00:00:00 Only Unassigned, CHARITO 350.1.13.10 ity of [place] [facility] 4.2.7.2.686 Nikita as [id number] [address] 2021-08-02 2021-08-02 Outpatient R YENNI COLLINS [facility] [id number] Univers 11:00:00 11:53:24 ity of [facility] 2021-08-02 2021-08-02 Routine Yenni Collins [facility] [id number] Univers 11:00:00 11:53:24 Cam [place] 350.1.13.10 ity of Visit [place] 4.2.7.2.[place] PROFESS[place] [id number] Wy dical NAL [address] [place] [address] 2021-07-31 2021-07-31 Telephone Yenni Collins [facility] 1.2.840.114 [id number] Univers 00:00:00 00:00:00 Cam [place] 350.1.13.10 i ty of [place] 4.2.7.2.[place] [id number] Wy dical NAL [address] [place] [address] 2021-07-16 2021-07-16 Outpatient R YENNI COLLINS [facility] [id number] Univers 10:30:00 10:54:06 ity of [facility] 2021-07-16 2021-07-16 Nurse Nurse, [facility] 1.2.840.114 [id number] Univers 10:30:00 10:54:06 Visit Yenni Collins Corby YOUNG 350.1.13.10 ity of [place] 4.2.7.2.[place] [id number] Wy dical NAL [address] [place] [address] 2021-07-11 2021-07-13 Inpatient P YENNI COLLINS [facility] TARA [id number] Univers 04:06:00 10:40:00 ity [facility] 2021-07-11 2021-07-13 [facility] Yenni Collins [facility] 1.2.840.114 [id number] Univers 04:06:00 10:40:00 Encounter Cam [place] 350.1.13.10 ity of [place].2.7.2.[place] [id number] [address] 2021-07-12 2021-07-12 Anesthesia Shannan [facility] 1.2.840.114 [id number] Univers 20:03:09 20:03:09 Event Geronimo HANNAH 350.1.13.10 i ty of [place] 4.2.7.2.686 [facility] [id number] [address] 2021-07-11 2021-07-11 Anesthesia Geronimo Campbell [facility] 1.2.840.11 [id number] Univers 13:56:00 22:11:00 Event Xenia Lakhani HANNAH 350.1.13.10 ity of [place] 4.2.7.2.686 [facility] [id number] [address] 2021-07-11 2021-07-11 Inpatient P YENNI COLLINS [facility] TARA [id number] Univers 04:06:00 04:06:00 ity [facility] 2021-07-04 2021-07-04 Outpatient R YENNI COLLINS [facility] [id number] Univers 09:45:00 10:23:10 ity of [facility] 2021-07-04 2021-07-04 Routine Karina [facility] [id number] Univers 09:45:00 10:23:10 Cam HANNAH 350.1.13.10 ity of Visit [place] 4.2.7.2.[address] [facility] PROFESSIO [id number] Wy dical NAL 134 [facility] 2021-07-02 2021-07-03 Outpatient P TI HAYS [facility] TARA [id number] Univers 23:43:00 02:15:00 ity of [facility] 2021-07-02 2021-07-03 Hospital Ti Hays [facility] 1.2.840.114 [id number] Univers 23:43:00 02:15:00 Encounter HANNAH 350.1.13.10 ity of [place] 4.2.7.2.686 [facility] [id number] [address] 2021-07-02 2021-07-02 Orders Doctor COSTA 1.2.840.114 [id number] Univers 00:00:00 00:00:00 Only Unassigned, CHARITO 350.1.13.10 ity of [place] [facility] 4.2.7.2.686 Nikita as [id number] [address] 2021-06-27 2021-06-27 Outpatient R DANNY [facility] [id number] Univers 10:45:00 11:10:58 CHRISTINA ity of [facility] 2021-06-27 2021-06-27 Routine Danny [facility] [id number] Univers 10:45:00 11:10:58 Christina YOUNG 350.1.13.10 ity of Visit [place] 4[place]2.7.2.[place] [id number] Wy dical NAL 134 [facility] 2021-06-18 2021-06-18 Outpatient R KARINA YENNI [facility] [id number] Univers 09:15:00 09:15:00 ity of [facility] 2021-06-18 2021-06-18 Magnet Valve Assembler 2, Adc Lab [facility] 1.2.840.114 [id number] Univers 09:15:00 09:15:00 Visit Yenni [place] 350.1.13.10 ity of [place] [id number] Wy dical NAL 353 [facility] 2021-06-14 2021-06-14 Outpatient R YENNI COLLINS [facility] [id number] Univers 13:15:00 14:26:54 ity of [facility] 2021-06-14 2021-06-14 Routine Karina [facility] [id number] Univers 13:15:00 14:26:54 Corby YOUNG 350.1.13.10 ity of Visit [place] 4[place]2.7[place]2.[place] [id number] Wy dical NAL 134 [facility] 2021-06-11 2021-06-11 Orders Doctor COSTA 1.2.840.114 [id number] Univers 00:00:00 00:00:00 Only Unassigned, CHARITO 350.1.13.10 ity of [place] [facility] 4.2.7.2.686 Nikita as [id number] [address] 2021-06-05 2021-06-05 [facility]phone [facility] 1.2.840.114 [id number] Univers 00:00:00 00:00:00 Christina YOUNG 350.1.13.10 i ty of [place] 4.2.[place].2.[place] [id number] [address] 2021-06-04 2021-06-04 Outpatient X ALEJANDAR COLLINSEN [facility] TARA [id number] Univers 14:22:00 18:20:00 ity of [facility] 2021-06-04 2021-06-04 Emergency Karina Yenni [facility] 1.2.840.114 [id number] Univers 14:22:00 18:20:00 Corby YOUNG 350.1.13.10 i ty of [place].2.7.2.[place] [id number] [facility] 083 [place] 2021-06-04 2021-06-04 Nurse JULISSA Chiang 1.2.840.114 [id number] Univers 00:00:00 00:00:00 Triage Tonie MCNEILL 350.1.13.10 it y of HOSPITAL 4.2.7.2.686 Nikita as [id number] [facility] 019 [place] 2021-06-04 2021-06-04 Orders Doctor JULISSA 1.2.840.114 [id number] Univers 00:00:00 00:00:00 Only Unassigned, CHARITO 350.1.13.10 ity of [place] [facility] 4.2.7.2.686 Nikita as [id number] [facility] 009 [place] 2021-05-30 2021-05-30 [facility] 1.2.687.329 [id number] Univers 11:15:00 11:30:00 Christina YOUNG 350.1.13.10 ity of Visit [place] 4.2.[place].2.[place] [id number] [address] 2021-05-30 2021-05-30 Outpatient R DANNY [facility] [id number] Univers 11:15:00 11:15:00 CHRISTINA ity [facility] 2021-05-30 2021-05-30 Orders Doctor JULISSA 1.2.840.114 [id number] Univers 00:00:00 00:00:00 Only Unassigned, CHARITO 350.1.13.10 ity of [facility] 4.2.7.2.686 Nikita as [id number] [address] 2021-05-29 2021-05-29 Magnet Valve Assembler Bennett, Adc Lab Main [facility] 1.2.8 40.114 [id number] Univers 10:00:00 10:15:00 Visit Christina Delgado [place] 350.1.13.10 ity [facility] 4.2.7.2.[place] [id number] [address] 2021-05-29 2021-05-29 Outpatient R DANNY [facility] [id number] Univers 10:00:00 10:00:00 CHRISTINA ity [facility] 2021-05-29 2021-05-29 Magnet Valve Assembler 2, Adc Lab [facility] 1.2.840.114 [id number] Univers 09:45:00 09:45:00 Visit CollinsYenni Corby [place] 350.1.13.10 ity [facility] 4.2.7.2.[place] [id number] [address] 2021-05-22 2021-05-22 Outpatient R [facility] [id number] Univers 09:00:00 09:00:00 ity [facility] 2021-05-21 2021-05-21 Magnet Valve Assembler Ultrasound, [facility] 1.2 .840.114 [id number] Univers 09:00:00 09:45:00 Visit Ashtyn Peterson HEEL ATTACHER WOOD 350.1. 13.[address] [facility] 4.2.7.2.686 Nikita as MATERNAL [id number] [facility] ical & CHILD [address] [place] [address] 2021-05-21 2021-05-21 Outpatient P BRADLEY [facility] [id number] Univers 09:00:00 09:00:00 KARINA it y of [facility] 2021-05-16 2021-05-16 Outpatient R YENNI COLLINS [facility] [id number] Univers 11:15:00 12:20:47 ity of [facility] 2021-05-16 2021-05-16 Routine Yenni Collins [facility] 1.2.825.846 [id number] Univers 11:15:00 12:20:47 Corby YOUNG 350.1.13.10 ity of [place] 4.2.7.2.[place]ESS[place] [id number] [address] 2021-05-01 2021-05-01 Outpatient P MYA [facility] TARA [id number] Univers 16:57:00 18:10:00 EMELIA itrell [facility] 2021-05-01 2021-05-01 Hospital Yenni Collins [facility] 1.2.840.114 [id number] Univers 16:57:00 18:10:00 Encounter Emelia Martin 350.1.13.10 ity of [place] 4.2.7.2.[place] [id number] [address] 2021-05-01 2021-05-01 Telephone Yenni Collins [facility] 1.2.840.114 [id number] Univers 00:00:00 00:00:00 Cam [place] 350.1.13.10 i ty [facility] 4.2.7.2.[place] [id number] [address] 2021-04-24 2021-04-24 Telephone Yenni Collins [facility] 1.2.840.114 [id number] Univers 00:00:00 00:00:00 Cam [place] 350.1.13.10 i ty of [place] 4.2[place]7.2.[place] [id number] [address] 2021-04-19 2021-04-19 Outpatient R YENNI COLLINS [facility] [id number] Univers 11:00:00 11:00:00 ity [facility] 2021-04-19 2021-04-19 Magnet Valve Assembler 2, Adc Lab [facility] 1.2.840.114 [id number] Univers 08:39:38 08:54:38 Visit Christina Delgado 350.1.13.10 ity [facility] 4.2.7.2.[place] [id number] [facility] 353 [facility] 2021-04-19 2021-04-19 Outpatient R DANNY [facility] [id number] Univers 08:45:00 08:45:00 CHRISTINA bowen [facility] 2021-04-19 2021-04-19 Case [facility] [id number] Univers 00:00:00 00:00:00 Management Christina YOUNG 350.1.13.10 ity of [facility] 4.2.7.2.[place] [id number] [address] 2021-04-18 2021-04-18 Routine [facility] 1.2.023.990 [id number] Univers 10:54:04 11:34:57 Christina YOUNG 350.1.13.10 ity of [facility] 4.2.7.2.[place] [id number] [address] 2021-04-18 2021-04-18 Outpatient Yang DELGADO [facility] [id number] Univers 10:45:00 11:34:57 CHRISTINA bowen [facility] 2021-04-17 2021-04-17 Telephone Yenni Collins [facility] 1.2.840.114 [id number] Univers 00:00:00 00:00:00 Corby YOUNG 350.1.13.10 i ty of [place] 4[place]7.2.[place] [id number] [address] 2021-03-23 2021-03-23 Routine Yenni Collins WILUMA MALLIE 1.2.840.114 [id number] Univers 09:35:52 10:10:10 Corby CUELLO 350.1.13.10 i ty of Visit [facility]OM[facility] 4.2.7.2.[place] [id number] [address] 2021-03-23 2021-03-23 Outpatient R KARINA YENNI [facility] [id number] Univers 09:30:00 10:10:10 ity [facility] 2021-03-21 2021-03-21 Magnet Valve Assembler Leticia Guajardo [facility] 1.2.8 40.114 [id number] Univers 13:29:04 13:44:04 Visit [facility] 350.1.13.10 ity [facility] 4.2.7.2.[place] [id number] Wy dical [address] 2021-03-21 2021-03-21 Outpatient R KARINA YENNI [facility] [id number] Univers 13:30:00 13:30:00 ity [facility] 2021-03-21 2021-03-21 Orders Doctor JULISSA 1.2.840.114 [id number] Univers 00:00:00 00:00:00 Only Unassigned, CHARITO 350.1.13.10 ity of [place] [facility] 4.2.7.2.686 Nikita as [id number] [address] 2021-02-26 2021-02-26 Magnet Valve Assembler Ultrasound, Cristofer[facility] 1.2 .840.114 [id number] Univers 14:59:37 15:59:37 Visit Power Thrasher HEEL ATTACHER WOOD 350.1.13.[address] [facility] 4.2.7.2.686 Nikita as MATERNAL [id number] Med ical & CHILD [address] [place] [address] 2021-02-26 2021-02-26 Outpatient P [facility] [id number] Univers 15:00:00 15:00:00 ity [facility] 2021-02-23 2021-02-23 Routine Karina Yenni [facility] 1.2.840.114 [id number] Univers 09:17:02 09:50:27 Corby [place] 350.1.13.10 i ty of Visit [place] [place] [id number] [address] 2021-02-23 2021-02-23 Outpatient R YENNI COLLINS [facility] [id number] Univers 09:15:00 09:15:00 ity [facility] 2021-02-19 2021-02-19 Telephone Yenni Collins WILUMA 1.2.840.114 [id number] Univers 00:00:00 00:00:00 Cam Hannah 350.1.13.10 i ty of [place].2.[place] Profess[place] [id number] Wy dical nal [address] [place] [address] 2021-01-26 2021-01-26 Routine Karina [facility] 1.2.840.114 [id number] Univers 13:04:32 13:25:43 Cam [place] 350.1.13.10 i ty of Visit [facility]'s 4.2.[place] [id number] [address] 2021-01-26 2021-01-26 Outpatient R KARINA [facility] [id number] Univers 13:00:00 13:00:00 ity [facility] 2021-01-26 2021-01-26 Orders Doctor JULISSA 1.2.840.114 [id number] Univers 00:00:00 00:00:00 Only Unassigned, CHARITO 350.1.13.10 ity of [place] [facility] [id number] Nikita as [phone] [place] [id number] [address] 2021-01-02 2021-01-02 Outpatient R KARINA YENNI [facility] [id number] Univers 14:00:00 14:00:00 ity [facility] 2020-12-29 2020-12-29 Outpatient R KARINA [facility] [id number] Univers 12:15:00 12:15:00 ity [facility] 2019-03-29 2019-03-29 Emergency E HH [facility] [address] [facility] 21:51:00 21:51:00 Results This patient has no known results.
[2022-09-30 03:52] LABS: Absolute Lymphocytes (CBC) 1.9 K/uL (0.7-4.9); Hematocrit 39.6 % (36.0-45.0); Lymphocytes % 22.5 % (15.3-44.8); MCV 91.3 fL (80-100); MPV 7.7 fL (7.6-11.3); RBC Red Blood Cell Count 4.34 M/uL (3.86-4.86)
[2022-09-30] MEDS ORDERED: NA CHLORIDE 0.9% 2,000 ML ONE (04:15)
[2022-09-30] MEDS ORDERED: ONDANSETRON 4 MG/2 ML VIAL ONE (04:15)
[2022-09-30] MEDS ORDERED: THIAMINE 200 MG/2 ML INJ ONE (04:15)
[2022-09-30 04:23] LABS: ALT/SGPT 128 U/L (13-56); AST/SGOT 347 U/L (15-37); Albumin 3.8 g/dL (3.4-5.0); Alkaline Phosphatase 80 U/L (45-117); BUN Blood Urea Nitrogen 5 mg/dL (7-18); Bicarbonate 24 mEq/L (21-32); Glomerular Filtration Rate 128 ml/min (=/>90); Glucose Level 99 mg/dL (74-106); Potassium 3.3 mEq/L (3.5-5.1); Protein, Total 7.8 g/dL (6.4-8.2); Sodium Level 142 mEq/L (136-145)
[2022-09-30 04:24] LABS: Bilirubin Direct < 0.1 mg/dL (0-0.2); Bilirubin Indirect, Calculated ND mg/dL (0.2-0.8); Bilirubin Total < 0.1 mg/dL (0.2-1.0)
[2022-09-30 04:56] LABS: Specific Gravity 1.007 (1.005-1.030)
[2022-09-30 04:57] LABS: Specific Gravity 1.007 (1.005-1.030); Urine Bacteria None Seen /HPF (<20); Urine Bilirubin NEGATIVE (Negative); Urine Blood Trace (Negative); Urine Clarity Clear (Clear); Urine Color Colorless (Yellow); Urine Glucose NEGATIVE (Negative); Urine Protein NEGATIVE (Negative); Urine RBC <5 /HPF (None Seen); Urine Urobilinogen Normal (Normal); Urine pH 5.5 (5.0-7.0)
[2022-09-30 05:01] LABS: Barbiturates NEGATIVE (NEGATIVE); Benzodiazepines NEGATIVE (NEGATIVE); Cocaine NEGATIVE (NEGATIVE); METHAMPHETAM NEGATIVE (NEGATIVE); Methadone NEGATIVE (NEGATIVE); Opiates NEGATIVE (NEGATIVE); Phencyclidine NEGATIVE (NEGATIVE); THC Cannibis NEGATIVE (NEGATIVE)
--- NOTE | 2022-09-30 05:07 | ER ---
Nurse's Notes [facility] Name: Rosemary Arnold Age: 21 yrs Sex: Female : 2000 Arrival Date: 09/30/2022 Time: 03:18 Bed 2 Private MD: Diagnosis: Alcohol use, unspecified with intoxication;syncope secondary to intoxication;Alcoholic hepatitis;Acute alcoholic hepatitis Presentation: 09/30 03:24 Chief complaint: EMS states: patient was found unresponsive on a blue tarp at the end pf1 of a water slide facing up. EMS stated other people on scene stated patient had been drinking alcohol tonight. Coronavirus screen: Vaccine status: Patient reports being unvaccinated. Client denies travel out of the [place] in the last 14 days. At this time, the client does not indicate any symptoms associated with coronavirus-19. Ebola Screen: Patient negative for fever greater than or equal to 101.5 degrees Fahrenheit, and additional compatible Ebola Virus Disease symptoms. Initial Sepsis Screen: Does the patient meet any 2 criteria? No. Patient's initial sepsis screen is negative. Does the patient have a suspected source of infection? No. Patient's initial sepsis screen is negative. Risk Assessment: Do you want to hurt yourself or someone else? Unable to obtain. 03:24 Method Of Arrival: EMS: [facility] pf1 03:24 Acuity: TRACY 2 pf1 09:31 Onset of symptoms is unknown. ap3 Triage Assessment: 09:32 General: Behavior is calm, cooperative. 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 - Social history:: Patient/guardian denies using street drugs, IV drugs, caffeine, over the counter diet medications, tobacco products, Smoking status: unknown. - Family history:: not pertinent. Screenin:30 [facility] ED Fall Risk Assessment (Adult) History of falling in the last 3 months, lg3 including since admission No falls in past 3 months (0 pts). Abuse screen: Denies threats or abuse. Denies injuries from another. Nutritional screening: No deficits noted. Tuberculosis screening: No symptoms or risk factors identified. Assessment: 03:30 Reassessment: Patient appears in no apparent distress at this time. Patient is alert, pf1 oriented x 3, equal unlabored respirations, skin warm/dry/pink. Patient states symptoms have improved. 04:30 General: Appears in no apparent distress. comfortable. Pain: Complains of pain in lg3 abdomen. Neuro: No deficits noted. López Agitation-Sedation Scale (RASS): -1 Drowsy Level of Consciousness is confused, lethargic, Oriented to person. Cardiovascular: No deficits noted. Denies chest pain, shortness of breath. Respiratory: No deficits noted. Airway is patent Respiratory effort is even, unlabored, Respiratory pattern is regular, symmetrical. GI: No deficits noted. Abdomen is round non-distended, Reports lower abdominal pain, upper abdominal pain, cramping, nausea. : No deficits noted. No signs and/or symptoms were reported regarding the genitourinary system. EENT: No deficits noted. No signs and/or symptoms were reported regarding the EENT system. Derm: No deficits noted. No signs and/or symptoms reported regarding the dermatologic system. Skin is intact, is healthy with good turgor, Skin is dry, Skin is normal, Skin temperature is warm. Musculoskeletal: No deficits noted. No signs and/or symptoms reported regarding the musculoskeletal system. Circulation, motion, and sensation intact. Range of motion: intact in all extremities. 06:12 Reassessment: Attempted to wake pt up to discharge, pt opens eyes looks at you and goes pf1 right back asleep. 06:37 General: family contacted on multiple occasions. no answer. no return phone call. pt lg3 unable to ambulate to lobby post discharge. . 08:31 Reassessment: Pt's nephew Jacob Monteiro, , in route to picker and sorter load and unload pt. jl7 Vital Signs: 03:24 BP 129 / 98; Pulse 103; Resp 20; Temp 97.7; Pulse Ox 100% on R/A; Weight 90.72 kg; pf1 Height 5 ft. 2 in. ; 04:32 BP 131 / 88; Pulse 97; Resp 18 S; Pulse Ox 100% on R/A; lg3 07:27 BP 117 / 70; Pulse 80; Pulse Ox 96% on R/A; ap3 03:24 Body Mass Index 36.58 (90.72 kg, 157.48 cm) pf1 ED Course: 03:19 Patient arrived in ED. rv1 03:21 Piter Dominguez MD is Attending Physician. sp4 03:32 Triage completed. pf1 03:33 Inserted saline lock: 20 gauge in right antecubital area, using aseptic technique. kl Blood collected. 03:34 Acetaminophen Sent. kl 03:34 Basic Metabolic Panel Sent. kl 03:34 CBC with Diff Sent. kl 03:34 ETOH Level Sent. kl 03:34 Hepatic Function Sent. kl 03:34 Salicylate Sent. kl 04:06 Acetaminophen Sent. lg3 04:06 Basic Metabolic Panel Sent. lg3 04:06 ETOH Level Sent. lg3 04:06 Hepatic Function Sent. lg3 04:06 Test, Urine Sent. lg3 04:06 Salicylate Sent. lg3 04:07 Urine Drug Screen Sent. lg3 04:07 Urinalysis w/ reflexes Sent. lg3 04:30 Patient has correct armband on for positive identification. Placed in gown. Bed in low lg3 position. Call light in reach. Side rails up X 1. Client placed on continuous cardiac and pulse oximetry monitoring. NIBP monitoring applied. court monitor on. Door closed. Noise minimized. Warm blanket given. 04:46 CT Head C Spine In Process Unspecified. EDMS 07:21 Christina Harper, RN is Primary Nurse. ap3 07:27 Arm band placed on right wrist. ap3 09:31 No provider procedures requiring assistance completed. IV discontinued, intact, ap3 bleeding controlled, No redness/swelling at site. Pressure dressing applied. Administered Medications: 04:17 Drug: Ondansetron IVP 4 mg Route: IVP; Site: left antecubital; kl 05:19 Follow up: Response: No adverse reaction; Marked relief of symptoms lg3 04:18 Drug: NS 0.9% IV 1000 ml Route: IV; Rate: 1 bolus; Site: left antecubital; kl 05:19 Follow up: IV Status: Completed infusion; IV Intake: 1000ml lg3 04:18 Drug: Thiamine IV 100 mg Route: IV; Rate: 100 bolus; Site: left antecubital; kl 05:19 Follow up: IV Status: Completed infusion; IV Intake: 100ml lg3 05:11 Not Given (Patient Refused): NS 0.9% IV 1000 ml IV at 1 bolus Per protocol; 1000 mL lg3 bolus Medication: 09:31 VIS not applicable for this client. ap3 Intake: 05:19 IV: 100ml; Total: 100ml. lg3 05:19 IV: 1000ml; Total: 1100ml. lg3 Outcome: 05:06 Discharge ordered by . sp4 09:32 Discharged to home via wheelchair, with family. ap3 09:32 Condition: good 09:32 Discharge instructions given to patient, Instructed on discharge instructions, follow up and referral plans. Demonstrated understanding of instructions, follow-up care. 09:32 Patient left the ED. ap3 Signatures: Dispatcher [employer] EDMS Dee Alexander, RN RN Chase Otero RN ALIA jl7 Christina Harper RN RN ap3 Dana Owusu RN RN lg3 Sara Lemons RN RN pf1 Adelina Serrano Sergey, MD MD sp4 Corrections: (The following items were deleted from the chart) 06:14 03:15 BP 129 / 98; Pulse 92bpm; Resp 17bpm; Pulse Ox 100%; pf1 pf1 06:14 05:00 BP 129 / 98; Pulse 92bpm; Resp 17bpm; Pulse Ox 100%; pf1 pf1 06:37 04:30 Neuro: No deficits noted. López Agitation-Sedation Scale (RASS): +1 Restless lg3 Level of Consciousness is awake, alert, obeys commands, Oriented to person, place, time, situation, lg3
--- NOTE | 2022-09-30 05:08 | EDPHYS ---
Physician Documentation [facility] Name: Rosemary Arnold Age: 21 yrs Sex: Female : 2000 Arrival Date: 09/30/2022 Time: 03:18 Bed 2 Private MD: ED Physician Piter Dominguez HPI: 09/30 03:21 This 21 yrs old Female presents to ER via Unassigned with complaints of sp4 Intoxication, unresponsiveness . 04:55 21-year-old female presents with moderate to severe alcohol intoxication. Patient was sp4 found at somebody else's house [place] the [place] and she was heavily intoxicated. EMS state they were not able to wake patient up for any history. EMS knows that patient has significant amount of alcohol this evening but apart from that nothing else is known. Patient was not able to communicate her own name or age. On arrival patient is heavily intoxicated but she is maintaining her airway. 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 - Social history:: Patient/guardian denies using street drugs, IV drugs, caffeine, over the counter diet medications, tobacco products, Smoking status: unknown. - Family history:: not pertinent. ROS: 04:56 Constitutional: Negative for fever, chills, and weight loss, Eyes: Negative for injury, sp4 pain, redness, and discharge, ENT: Negative for injury, pain, and discharge. 04:56 All other systems are negative. 04:56 Unable to obtain ROS due to Intoxication . 04:57 Eyes: Not obtainable ENT: Not obtainable sp4 Exam: 04:57 Constitutional: This is a well developed, well nourished patient , heavily sp4 intoxicated, responds to painful stimuli only, nonverbal on arrival, clothes are saturated in water Head/Face: Normocephalic, atraumatic. Eyes: Pupils equal round and reactive to light, extra-ocular motions intact. Lids and lashes normal. Conjunctiva and sclera are not injected. Cornea within normal limits. Periorbital areas with no swelling, redness, or edema. ENT: Nares patent. No nasal discharge, no septal abnormalities noted. Tympanic membranes are normal and external auditory canals are clear. Oropharynx with no redness, swelling, or masses, exudates, or evidence of obstruction, uvula midline. Mucous membranes moist. Neck: Trachea midline, no thyromegaly or masses palpated, and no cervical lymphadenopathy. Supple, full range of motion without nuchal rigidity, or vertebral point tenderness. No Meningismus. Chest/axilla: Normal chest wall appearance and motion. Nontender with no deformity. No lesions are appreciated. Cardiovascular: Regular rate and rhythm with a normal S1 and S2. No gallops, murmurs, or rubs. Normal PMI, no JVD. No pulse deficits. Respiratory: Lungs have equal breath sounds bilaterally, clear to auscultation and percussion. No rales, rhonchi or wheezes noted. No increased work of breathing, no retractions or nasal flaring. Abdomen/GI: Soft, non-tender, with normal bowel sounds. No distension or tympany. No guarding or rebound. No evidence of tenderness throughout. Back: No spinal tenderness. No costovertebral tenderness. Skin: Warm, dry with normal turgor. Normal color with no rashes, no lesions, and no evidence of cellulitis. MS/ Extremity: Pulses equal, no cyanosis. Neurovascular intact. Full, normal range of motion. Neuro: Patient is moving all extremities, patient responds to painful stimuli only, nonverbal on arrival, heavily intoxicated. Grossly no lateralizing deficits 04:57 EKG time 0 427, there is normal sinus rhythm at a rate of 87, muscle tremor artifact, sp4 no ST elevation or depression, prolonged QT, no signs of acute ischemia, no ectopy Vital Signs: 03:24 BP 129 / 98; Pulse 103; Resp 20; Temp 97.7; Pulse Ox 100% on R/A; Weight 90.72 kg; pf1 Height 5 ft. 2 in. ; 04:32 BP 131 / 88; Pulse 97; Resp 18 S; Pulse Ox 100% on R/A; lg3 07:27 BP 117 / 70; Pulse 80; Pulse Ox 96% on R/A; ap3 03:24 Body Mass Index 36.58 (90.72 kg, 157.48 cm) pf1 MDM: 03:24 Patient medically screened. sp4 04:57 Differential Diagnosis altered mental status, Alcohol intoxication, drug intoxication, sp4 hypothermia, encephalopathy. Data reviewed: vital signs, nurses notes, EMS record, old medical records, lab test result(s), cardiac enzymes, CBC, drug level(s), electrolytes, hepatic panel, urinalysis, EKG, radiologic studies, CT scan. Consideration of Admission/Observation Escalation of care including admission/observation considered. ED course: Patient found to be heavily intoxicated, CT of the head is unremarkable, EKG unremarkable, patient is stable for discharge home with adult supervision. Will advised to discontinue use of alcohol. 05:08 ED course: There is also sign of acute alcoholic hepatitis. Advised patient to see her sp4 PCP in 7 to 10 days for liver panel check. 05:12 ED course: CT head and C-spine are unremarkable, test is negative, urine drug sp4 screen is negative. 09/30 03:22 Order name: Acetaminophen; Complete Time: 04:50 sp4 09/30 03:22 Order name: Basic Metabolic Panel; Complete Time: 04:50 sp4 09/30 03:22 Order name: CBC with Diff; Complete Time: 04:50 sp4 09/30 03:22 Order name: ETOH Level; Complete Time: 04:50 sp4 09/30 03:22 Order name: Hepatic Function; Complete Time: 04:50 sp4 09/30 03:22 Order name: Test, Urine; Complete Time: 04:56 sp4 09/30 03:22 Order name: Salicylate; Complete Time: 04:50 sp4 09/30 03:22 Order name: Urinalysis w/ reflexes; Complete Time: 05:07 sp4 09/30 03:22 Order name: Urine Drug Screen; Complete Time: 05:07 sp4 09/30 03:23 Order name: CT Head C Spine sp4 09/30 03:22 Order name: EKG; Complete Time: 03:23 sp4 09/30 03:22 Order name: EKG - Nurse/Tech; Complete Time: 04:29 sp4 09/30 03:22 Order name: IV Saline Lock; Complete Time: 04:29 sp4 09/30 03:22 Order name: Labs collected and sent; Complete Time: 04:29 sp4 EC:57 Rate is 87 beats/min. Rhythm is regular, Normal Sinus Rhythm. QRS [place] is Normal. [place] sp4 interval is normal. QRS interval is normal. QT interval is prolonged. T waves are Normal. No ST changes noted. Clinical impression: No evidence of ischemia. Interpreted by me. Administered Medications: 04:17 Drug: Ondansetron IVP 4 mg Route: IVP; Site: left antecubital; kl 05:19 Follow up: Response: No adverse reaction; Marked relief of symptoms lg3 04:18 Drug: NS 0.9% IV 1000 ml Route: IV; Rate: 1 bolus; Site: left antecubital; kl 05:19 Follow up: IV Status: Completed infusion; IV Intake: 1000ml lg3 04:18 Drug: Thiamine IV 100 mg Route: IV; Rate: 100 bolus; Site: left antecubital; kl 05:19 Follow up: IV Status: Completed infusion; IV Intake: 100ml lg3 05:11 Not Given (Patient Refused): NS 0.9% IV 1000 ml IV at 1 bolus Per protocol; 1000 mL lg3 bolus Disposition Summary: 09/30/22 05:06 Discharge Ordered Location: Home sp4 Problem: new sp4 Symptoms: have improved sp4 Condition: Stable sp4 Diagnosis - Alcohol use, unspecified with intoxication sp4 - syncope secondary to intoxication sp4 - Alcoholic hepatitis sp4 - Acute alcoholic hepatitis sp4 Followup: sp4 - With: Private Physician - When: As needed - Reason: Discharge Instructions: - Discharge Summary Sheet sp4 - Alcohol Intoxication, [id number] sp4 Forms: - Medication Reconciliation Form sp4 Signatures: Dispatcher [employer] EDDee Winchester RN RN Andrew Santos FNP-Vini RAINESP-ClaChase Tillman RN RN jl7 Piter Dominguez MD MD sp4 Dana Owusu RN lg3
[2022-09-30 10:02] VITALS: TEMP 97.7
[2022-09-30 10:04] VITALS: BP 117/70; O2SAT 96
--- NOTE | 2022-09-30 11:42 | EKG ---
Test Date: 2022-09-30 Test Time: 04:27:05 Security Systems Administrator: MARY MEASUREMENT RESULTS: Intervals: Rate: 87 MD: 164 QRSD: 94 QT: 402 QTc: 483 [place]: P: 64 MD: 164 QRS: 75 T: 32 INTERPRETIVE STATEMENTS: Normal sinus rhythm Prolonged QT Abnormal ECG No previous ECG available for comparison Electronically Signed On 09-30-22 11:41:19 CDT by Vincenzo Carmona
--- NOTE | 2022-10-01 15:12 | RAD REPORT ---
EXAM DESCRIPTION: CT - Head C Spine Mpr Wo Con - 09/30/2022 6:37 am CLINICAL HISTORY: Unresponsive COMPARISON: 05/26/2022 TECHNIQUE: Axial CT of the head obtained from the skull apex to the skull base without contrast. Axi al CT images of the cervical spine obtained from the skull base through the thoracic inlet. Sagittal and coronal reformatted images available. This exam was performed according to our departmental dose- optimization program, which includes automated exposure control, adjustment of the mA and/or kV accor ding to patient size and/or use of iterative reconstruction technique. FINDINGS: CT head: No acute intracranial hemorrhage identified. No mass, mass effect, shift of the midline, abnormal ext ra-axial fluid collection or CT evidence of acute ischemic change identified. The ventricular system is unremarkable. No acute abnormalities of the supratentorial white matter, basal ganglia, cerebell um, or brainstem. The visualized paranasal sinuses and the mastoids are clear. No skull fracture identified. Visual ized orbits and globes are unremarkable. Cervical CT: Straightening of the cervical lordosis may be secondary to patient positioning. The atlantoaxial, a tlantodental, and occipitoatlantal intervals are preserved. No fracture identified. Vertebral body height preserved. Prevertebral soft tissues are unremarkable. Intervertebral disc height preserved. Visualized skull base is intact. No fracture of the visualized facial bones. Visualized mastoid air c ells and paranasal sinuses are well aerated. Visualized thyroid is unremarkable. No cervical lymphadenopathy. No pneumothorax in the visualized lung apices. IMPRESSION: 1. No acute intracranial abnormality. 2. No acute fracture or subluxation of the cervical spine. Electronically signed by: Vinod Fatima 09/30/2022 4:59 AM CDT Due to temporary technical issues with the PACS/Fluency reporting system, reports are being signed by the in house radiologist without review as a courtesy to ensure prompt reporting. The interpreting r adiologist is fully responsible for the content of the report.
== END 2022-09-30 09:32 | disposition home or self-care (01) ==
LOC: ER 03:18
DX: F10.929 Alcohol use, unspecified with intoxication, unspecified (principal); K70.10 Alcoholic hepatitis without ascites; R55 Syncope and collapse
CPT/HCPCS: 96365; 93005; 85025; 81001; 80048; 36415; 81025; 80076; 80307; 70450; 72125; 96375; 99285; J3411; J2405; J7030; G0480 ×3

== ENCOUNTER 2022-11-09 22:06 | Emergency (ER) | payer OTHER ==
--- OUTSIDE RECORDS SUMMARY | 2022-11-09 22:09 | XMS REPORT | Continuity of Care Document ---
:2000 Author Organization [facility] Address [address] [facility] [address] [place] [address] Care Team Providers Name Role Phone PCP, PATIENT DOES NOT HAVE A Primary Care Physician UnavailYenni Jerez MD Attending Clinician YENNI COLLINS Attending Clinician Unavailable Christina Delgado PA-C Attending Clinician 2, [facility] Lab Attending Clinician Unavailable Doctor Unassigned, [place] Attending Clinician Unavailable Nurse, [facility] Attending Clinician Unavailable Geronimo Campbell CRNA Attending Clinician Xenia Lakhani MD Attending Clinician TI HAYS Attending Clinician Unavailable Ti Hays MD Attending Clinician CHRISTINA DELGADO Attending Clinician Unavailable Tonie Chiang RN Attending Clinician Unavailable Pob, Adc Lab Main Attending Clinician Unavailable Ultrasound, Ang-Mfm Attending Clinician Unavailable Ashtyn Peterson MD Attending Clinician [phone] ASHTYN PETERSON Attending Clinician Unavailable EMELIA MARTIN Attending Clinician Unavailable Emelia Martin MD Attending Clinician Power Thrasher MD Attending Clinician YENNI COLLINS Admitting Clinician Unavailable Yenni Collins MD Admitting Clinician TI HAYS Admitting Clinician Unavailable Ti Hays MD Admitting Clinician Payers Payer Name Policy Type Policy Number Effective Date Expiration Date Erica chun [facility] [id number] 2020 STAR 00:00:00 [facility] STAR [id number] 2020 00:00:00 [place] [id number] 2020 00:00:00 Problems Condition Condition Condition Status Onset Resolution Last Treating Co mments Source Name Details Category Date Date Treatment Clinician Date Vitamin D Vitamin D Disease Active Uni vers deficiency deficiency 4-28 it y of 00:00: [place] [facility] Anemia, Anemia, Disease Active Univers unspecifie unspecifie 4-28 it y of d type d type 00:00: [place] [facility] Nexplanon Nexplanon Disease Active Uni vers in place in place 3-24 ity of 00:00: [place] [facility] History of History of Disease Active U nivers pre-eclamp pre-eclamp 3-17 it y of jos jos 00:00: [place] [address] Medical Branch Encounter Encounter Disease Active Uni vers for for 3-17 ity of screening screening 00:00: Manolo campos for for 00 Medical maternal maternal Branch depression depression Obesity, Obesity, Disease Active Unive rs Class III, Class III, 8-13 it y of BMI BMI 00:00: [place] 40-49.9 40-49.9 00 Medical (morbid (morbid Branch obesity) obesity) Allergies, Adverse Reactions, Alerts Allergy Allergy Status Severity Reaction(s) Onset Inactive Treating Comm ents Source Name Type Date Date Clinician NO KNOWN Drug Active Univers ALLERGIE Class ity of S [facility] Social History Social Habit Start Date Stop Date Quantity Comments Source Exposure to 2021-12-10 2021-12-20 Not sure [facility] SARS-CoV-2 00:00:00 08:34:00 [facility] (event) [place] Tobacco use and 2021-12-20 2021-12-20 Smokeless tobacco Un iversity of exposure 00:00:00 00:00:00 non-user [facility] Alcohol intake 2021-12-20 2021-12-20 Ex-drinker University of 00:00:00 00:00:00 (finding) [facility] Sex Assigned At 2000 2000 Universit y of 00:00:00 00:00:00 [facility] [place] Smoking Status Start Date Stop Date Source Never smoked tobacco [facility] Medications Ordered Filled Start Stop Current Ordering Indication Dosage Frequency Signature Comments Components Source Medication Medication Date Date Medication? Clinician (SIG) Name Name sulfamethox 2- No [id number] 1{tbl} Take 1 Univers azole-trime 09-07 tablet by it y of thoprim 00:00: 00:00 mouth 2 [place] (BACTRIM 00 :00 (two) Medical DS) 800-160 times Branch mg per daily. tablet ferrous Yes [id number] 325mg Take 1 Un gerhard sulfate 4-21 tablet by ity of (IRON, 00:00: mouth 2 [place] FERROUS 00 (two) Medical SULFATE,) times Branch 325 mg (65 daily. mg iron) tablet ascorbic Yes [id number] 500mg Take 1 U nivers acid, 4-21 tablet by ity of vitamin C, 00:00: mouth [place] 500 mg 00 daily. Medical tablet Branch polycarboph Yes [id number] 625mg Take 1 Univers il 4-21 tablet by ity of (FIBERCON) 00:00: mouth [place] 625 mg 00 daily. Medical tablet Branch Cholecalcif Yes [id number] 2000U Take 1 Univers ashley, 4-21 tablet by ity of Vitamin D3, 00:00: mouth [place] (VITAMIN 00 daily. Medical D3) 50 mcg Branch (2,000 unit) tablet docusate 2021- No [id number] 100mg Take 1 Univers (COLACE) -12-20 capsule by ity of 100 mg 00:00: 00:00 mouth [place] capsule 00 :00 daily as Medical needed for Branch Constipati on. triamcinolo Yes [id number] Apply to Univers ne 0.1 % 09-04 area(s) 3 ity of lotion 00:00: (three) [place] 00 times Medical daily. Branch Vital Signs Vital Name Observation Time Observation Value Comments Source Systolic blood 2021-12-20 13:49:00 119 mm[Hg] Univer sity of pressure [facility] [place] Diastolic blood 2021-12-20 13:49:00 86 mm[Hg] Unive rsity of pressure [facility] Heart rate 2021-12-20 13:49:00 88 /min [facility] Body temperature 2021-12-20 13:49:00 37.06 Shari [facility] Respiratory rate 2021-12-20 13:49:00 18 /min [facility] [place] [facility] Body height 2021-12-20 13:49:00 160 cm [facility] Body weight 2021-12-20 13:49:00 102.513 kg [facility] BMI 2021-12-20 13:49:00 40.03 kg/m2 [facility] Procedures This patient has no known procedures. Encounters Start End Encounter Admission Attending Care Care Encounter Source Date/Time Date/Time Type Type Clinicians Facility Department ID 2022-10-17 Outpatient [facility] [id number] [place] 13:04:37 [id number] Health 2021-06-04 Outpatient X [facility] [id number] Univers [facility] Outpatient P [facility] [id number] Univers 18:17:36 [facility] 2021-12-20 2021-12-20 Office Yenni Collins [facility] [id number] Univers 08:30:00 09:14:26 Visit Corby YOUNG 350.1.13.10 i [facility] 4.2.7.2.686 Manolo UNGERIO [id number] Tx dical [place] [address] Branch [facility] 2021-12-20 2021-12-20 Outpatient YENNI JOHN [facility] [id number] Univers 08:30:00 [facility]14[facility] 2021-12-20 2021-12-20 Outpatient YENNI JOHN [facility] [id number] Univers 08:30:00 08:30:[facility] 2021-11-07 2021-11-07 Outpatient YENNI JOHN [facility] [id number] Univers 13:30:00 13:30:00 ity of [facility] 2021-10-24 2021-10-24 Outpatient R YENNI COLLINS [facility] [id number] Univers 10:30:00 10:30:00 ity of [facility] 2021-09-13 2021-09-13 Outpatient R YENNI COLLINS [facility] [id number] Univers 13:15:00 13:46:00 ity of [facility] [place] 2021-09-13 2021-09-13 Office Yenni Collins [facility] [id number] Univers 13:15:00 13:46:00 Visit Corby [place] 350.1.13.10 i ty of [place] 4.2.7.2.686 [place] PROFESS[place] [id number] Tx dical NAL [address] [facility] 2021-09-13 2021-09-13 Outpatient R YENNI COLLINS [facility] [id number] Univers 13:15:00 13:15:00 ity of [facility] [place] 2021-09-07 2021-09-07 Case JOSE Delgado 1.2.242.527 [id number] Univers 00:00:00 00:00:00 Management Christina PEDIATRIC 350.1.13.10 ity of [place]2.[place].2.686 [place] [id number] [address] 2021-09-06 2021-09-06 Case Yenni Collins [facility] [id number] Univers 00:00:00 00:00:00 Management Cam [place] 350.1.13.10 ity of [place] 4.2.7.2.686 [place] [phone] Tx dical NAL 134 [facility] 2021-09-05 2021-09-05 Investment Trader 2, Adc Lab [facility] 1.2.840.114 [id number] Univers 08:15:00 08:30:00 Visit Yenni Collins 350.1.13.10 ity of [place] 4.2.7.2.686 [place] [id number] Tx dical NAL 353 [facility] 2021-09-05 2021-09-05 Outpatient R [facility] [id number] Univers 08:15:00 08:15:00 ity of [facility] [place] 2021-09-05 2021-09-05 Outpatient R YENNI COLLINS [facility] [id number] Univers 08:15:00 08:15:00 ity [facility] 2021-09-04 2021-09-04 [facility] [id number] Univers 13:30:00 14:13:51 Visit Corby YOUNG 350.1.13.10 i ty of [place] 4.2.7.2.686 [place] PROFESS[place] [id number] T[place] dic[address] 2021-09-04 2021-09-04 Outpatient R YENNI COLLINS [facility] [id number] Univers 13:30:00 14:13:51 ity of [facility] [place] 2021-09-04 2021-09-04 Outpatient R YENNI COLLINS [facility] [id number] Univers 13:30:00 13:30:00 ity of [facility] 2021-08-30 2021-08-30 Outpatient R YENNI COLLINS [facility] [id number] Univers 13:00:00 13:00:00 ity [facility] 2021-08-09 2021-08-09 Office [facility] [id number] [id number] Univers 13:30:00 14:45:29 Visit Corby YOUNG 350.1.13.10 i ty of [place] 4.2.7.2.686 [place] PROFESS[place] [id number] T[place] dic[address] 2021-08-09 2021-08-09 Outpatient R YENNI COLLINS [facility] [id number] Univers 13:30:00 14:45:29 ity of [facility] 2021-08-09 2021-08-09 Out[facility] [id number] Univers 13:30:00 13:30:00 ity [facility] 2021-08-09 2021-08-09 Orders Doctor COSTA 1.2.840.114 [id number] Univers 00:00:00 00:00:00 Only Unassigned, CHARITO 350.1.13.10 ity of [place] [facility] 4.2.7.2.686 Nikita as [phone] [address] 2021-08-02 2021-08-02 Outpatient R YENNI COLLINS [facility] [id number] Univers 11:00:00 11:53:24 ity of [facility] [place] 2021-08-02 2021-08-02 Routine CollinsAlejandraen [facility] 1.2.003.333 [id number] Univers 11:00:00 11:53:24 Cam [place] 350.1.13.10 ity of Visit [place] 4.2.7.2.686 [place] PROFESS[place] [id number] Tx dical NAL [address] [place] [address] 2021-07-31 2021-07-31 Telephone CollinsYenni [facility] 1.2.840.114 [id number] Univers 00:00:00 00:00:00 Cam [place] 350.1.13.10 i ty of [place] 4.2.7.2.686 [place] PROFESS[place] [id number] Tx dical NAL [address] [place] [address] 2021-07-16 2021-07-16 Outpatient R ALEJANDRA COLLINSEN [facility] [id number] Univers 10:30:00 10:54:06 ity of [facility] [place] 2021-07-16 2021-07-16 Nurse Nurse, [facility] 1.2.840.114 [id number] Univers 10:30:00 10:54:06 Visit Yenni Collins Corby [place] 350.1.13.10 ity of [place] 4.2.7.2.686 [place] PROFESS[place] [id number] Tx dical NAL [address] [place] [address] 2021-07-11 2021-07-13 Inpatient P COLLINSALEJANDRAEN [facility] [id number] Univers 04:06:00 10:40:00 ity of [facility] [place] 2021-07-11 2021-07-13 [facility] Karina Yenni [facility] 1.2.840.114 [id number] Univers 04:06:00 10:40:00 Encounter Cam [place] 350.1.13.10 ity of [place] 4.2.7.2.686 [facility] [id number] [address] 2021-07-12 2021-07-12 Anesthesia Shannan [facility] 1.2.840.114 [id number] Univers 20:03:09 20:03:09 Event Geronimo HANNAH 350.1.13.10 i ty of [place] 4.2.7.2.686 [facility] [id number] [address] 2021-07-11 2021-07-11 Anesthesia ShannanGeronimo [facility] 1.2.840.11 [id number] Univers 13:56:00 22:11:00 Event LakhaniXenia 350.1.13.10 ity of [place] 4.2.7.2.686 [facility] [id number] [address] 2021-07-11 2021-07-11 Inpatient P YENNI COLLINS [facility] [id number] Univers 04:06:00 04:06:00 ity of [facility] [place] 2021-07-04 2021-07-04 Outpatient R YENNI COLLINS [facility] [id number] Univers 09:45:00 10:23:10 ity of [facility] [place] 2021-07-04 2021-07-04 Routine Yenni Collins [facility] 1.2.208.847 [id number] Univers 09:45:00 10:23:10 Cam HANNAH 350.1.13.10 ity of Visit [place] 4.2.7.2.686 [facility] PROFESSIO [id number] Tx dical [address] 2021-07-02 2021-07-03 Outpatient P TI HAYS [facility] [id number] Univers 23:43:00 02:15:00 ity of [facility] [place] 2021-07-02 2021-07-03 [facility] Ti Hays [facility] 1.2.840.114 [id number] Univers 23:43:00 02:15:00 Encounter HANNAH 350.1.13.10 ity of [place] 4.2.7.2.686 [facility] [phone] [address] 2021-07-02 2021-07-02 Orders Doctor JULISSA 1.2.840.114 [id number] Univers 00:00:00 00:00:00 Only Unassigned, CHARITO 350.1.13.10 ity of [place] [facility] 4.2.7.2.686 Nikita as [id number] [address] 2021-06-27 2021-06-27 Outpatient R DANNY [facility] [id number] Univers 10:45:00 11:10:58 CHRISTINA ity [facility] 2021-06-27 2021-06-27 [facility] 1.2.916.775 [id number] Univers 10:45:00 11:10:58 Christina YOUNG 350.1.13.10 ity of Visit [place] 4.2.7.2.[place] PROF[place] [id number] Tx dical NAL 134 [facility] 2021-06-18 2021-06-18 Outpatient R YENNI COLLINS [facility] [id number] Univers 09:15:00 09:15:00 ity of [facility] [place] 2021-06-18 2021-06-18 Investment Trader 2, Adc Lab [facility] 1.2.840.114 [id number] Univers 09:15:00 09:15:00 Visit Yenni Collins 350.1.13.10 ity [facility] 4.2.7.2.[place] [id number] Tx dical NAL 353 [facility] 2021-06-14 2021-06-14 Outpatient R YENNI COLLINS [facility] [id number] Univers 13:15:00 14:26:54 ity of [facility] 2021-06-14 2021-06-14 Routine Yenni Collins [facility] 1.2.241.235 [id number] Univers 13:15:00 14:26:54 Corby YOUNG 350.1.13.10 ity of [place] 4.2.7.2.[place] PROF[place] [id number] Tx dical NAL 134 [facility] 2021-06-11 2021-06-11 Orders Doctor COSTA 1.2.840.114 [id number] Univers 00:00:00 00:00:00 Only Unassigned, CHARITO 350.1.13.10 ity of [place] [facility] 4.2.7.2.686 Nikita as [id number] [facility] 009 [place] 2021-06-05 2021-06-05 Telephone [facility] 1.2.840.114 [id number] Univers 00:00:00 00:00:00 Christina YOUNG 350.1.13.10 i ty of [place] 4.2.7.2.[place] PROF[place] [id number] Tx dical NAL [address] [place] [address] 2021-06-04 2021-06-04 Outpatient X YENNI COLLINS [facility] [id number] Univers 14:22:00 18:20:00 ity of [facility] [place] 2021-06-04 2021-06-04 Emergency Yenni Collins [facility] 1.2.840.114 [id number] Univers 14:22:00 18:20:00 Corby YOUNG 350.1.13.10 i ty of [place] 4.2.7.2.686 [place] NEV[place] [id number] [facility] 0[address] 2021-06-04 2021-06-04 Nurse JULISSA Chiang 1.2.840.114 [id number] Univers 00:00:00 00:00:00 Triage Tonie Carranza [place] 350.1.13.10 it y of HOSPITAL 4.2.7.2.686 Nikita as [id number] [facility] 019 [place] 2021-06-04 2021-06-04 Orders Doctor JULISSA 1.2.840.114 [id number] Univers 00:00:00 00:00:00 Only Unassigned, CHARITO 350.1.13.10 ity of [place] [facility] 4.2.7.2.686 Nikita as [id number] [facility] 009 [place] 2021-05-30 2021-05-30 Routine [facility] 1.2.761.897 [id number] Univers 11:15:00 11:30:00 Christina YOUNG 350.1.13.10 ity of Visit [place] 4.2.7.2.686 [place] [facility] [id number] Tx dical NAL 134 [facility] 2021-05-30 2021-05-30 Outpatient R DANNY [facility] [id number] Univers 11:15:00 11:15:00 [facility] 2021-05-30 2021-05-30 Orders Doctor JULISSA 1.2.840.114 [id number] Univers 00:00:00 00:00:00 Only Unassigned, CHARITO 350.1.13.10 ity of [facility] 4.2.7.2.686 Nikita as [phone] [address] 2021-05-29 2021-05-29 Investment Trader Bennett, Adc Lab Main [facility] 1.2.8 40.114 [id number] Univers 10:00:00 10:15:00 Visit SergosilverChristina acevedo [facility] 350.1.13.10 ity [facility] 4.2.7.2.[place] PROF[place] [id number] T[place] dic[address] 2021-05-29 2021-05-29 Outpatient R DANNY [facility] [id number] Univers 10:00:00 10:00:00 [facility] 2021-05-29 2021-05-29 Investment Trader 2, Adc Lab [facility] 1.2.840.114 [id number] Univers 09:45:00 09:45:00 Visit Yenni Collins [place] 350.1.13.10 ity [facility] 4.2.7.2.[place] PROF[place] [id number] T[place] dic[address] 2021-05-22 2021-05-22 Outpatient R [facility] [id number] Univers 09:00:00 09:00:00 ity [facility] 2021-05-21 2021-05-21 Investment Trader Shahid, Earlene [facility] 1.2 .840.114 [id number] Univers 09:00:00 09:45:00 Visit Ashtyn Peterson NET SORTER 350.1. 13.[address] [facility] 4.2.7.2.686 Nikita as MATERNAL [phone] Med ical & CHILD [address] [place] [address] 2021-05-21 2021-05-21 Outpatient P BRADLEY [facility] [id number] Univers 09:00:00 09:00:00 KARINA it y of S, CHAMORRO [facility] [place] 2021-05-16 2021-05-16 Outpatient R YENNI COLLINS [facility] [id number] Univers 11:15:00 12:20:47 ity of [facility] [place] 2021-05-16 2021-05-16 Routine Karina [facility] 1.2.114.632 [id number] Univers 11:15:00 12:20:47 Corby YOU[place] 350.1.13.10 ity of [facility] 4.2.7.2.[place] [id number] Tx dicmi NAL [address] [place] [address] 2021-05-01 2021-05-01 Outpatient P CYDNEYBETTY [facility] TARA [id number] Univers 16:57:00 18:10:00 EMELIA bowen of [facility] [place] 2021-05-01 2021-05-01 Hospital Yenni Collins [facility] 1.2.840.114 [id number] Univers 16:57:00 18:10:00 Encounter Emelia Martin 350.1.13.10 ity of [facility] 4.2.7.2.[place] [facility] [id number] [facility] 083 [place] 2021-05-01 2021-05-01 Telephone [facility] 1.2.840.114 [id number] Univers 00:00:00 00:00:00 Corby YOU[place] 350.1.13.10 i ty of [place] 4.2.7.2.686 [place] PROF[place] [id number] Tx dical NAL [address] [place] [address] 2021-04-24 2021-04-24 Telephone Yenni Collins [facility] 1.2.840.114 [id number] Univers 00:00:00 00:00:00 Cam HANNAH 350.1.13.10 i ty of [place] 4.2.7.2.686 [place] PROF[place] [id number] Tx dical NAL [address] [place] [address] 2021-04-19 2021-04-19 Outpatient R YENNI COLLINS [facility] [id number] Univers 11:00:00 11:00:00 ity of [facility] [place] 2021-04-19 2021-04-19 Investment Trader 2, Adc Lab [facility] 1.2.840.114 [id number] Univers 08:39:38 08:54:38 Visit Christina Delgado 350.1.13.10 ity of [place] 4.2.7.2.[place] [id number] Tx dical [facility] 353 [facility] 2021-04-19 2021-04-19 Out[facility] [id number] Univers 08:45:00 08:45:00 CHRISTINA jessi [facility] 2021-04-19 2021-04-19 Case [facility] 1.2.635.581 [id number] Univers 00:00:00 00:00:00 Management Christina YOUNG 350.1.13.10 ity of [place] 4.2.7.2.686 [place] PROF[place] [id number] Tx dical NAL [address] [place] [address] 2021-04-18 2021-04-18 Routine [facility] 1.2.762.049 [id number] Univers 10:54:04 11:34:57 Christina YOUNG 350.1.13.10 ity of Visit [place] 4.2.7.2.686 [place] PROFESS[place] [id number] Tx dical NAL [address] [place] [address] 2021-04-18 2021-04-18 Outpatient R DANNY [facility] [id number] Univers 10:45:00 11:34:57 CHRISTINA jessi [facility] 2021-04-17 2021-04-17 Telephone Yenni Collins [facility] 1.2.840.114 [id number] Univers 00:00:00 00:00:00 Corby YOUNG 350.1.13.10 i ty of [place] 4.2.7.2.686 [place] PROF[place] [id number] Tx dical NAL [address] [place] [address] 2021-03-23 2021-03-23 Routine Yenni Collins [facility] 1.2.840.114 [id number] Univers 09:35:52 10:10:10 Corby CUELLO 350.1.13.10 i ty of Visit [facility] 4.2.7.2.686 [place] [facility] [id number] [facility] [address] 2021-03-23 2021-03-23 Outpatient R YENNI COLLINS [facility] [id number] Univers 09:30:00 10:10:10 ity of [facility] [place] 2021-03-21 2021-03-21 Investment Trader Leticia Guajardo [facility] 1.2.8 40.114 [id number] Univers 13:29:04 13:44:[address] [facility] 350.1.13.10 ity [facility] 4.2.7.2.[place] [id number] Tx dical [address] 2021-03-21 2021-03-21 Outpatient R KARINA [facility] [id number] Univers 13:30:00 13:30:00 ity [facility] 2021-03-21 2021-03-21 Orders Doctor JULISSA 1.2.840.114 [id number] Univers 00:00:00 00:00:00 Only Unassigned, CHARITO 350.1.13.10 ity of [facility] 4.2.7.2.686 Nikita as [id number] [place] [address] Branch 2021-02-26 2021-02-26 Investment Trader Ultrasound, [facility] 1.2 .840.114 [id number] Univers 14:59:37 15:59:37 Visit Power Thrasher NET SORTER 350.1.13.[address] [facility] 4.2.7.2.686 Nikita as MATERNAL [id number] Med ical & CHILD [address] [place] [address] 2021-02-26 2021-02-26 Outpatient P [facility] [id number] Univers 15:00:00 15:00:00 ity of [facility] [place] 2021-02-23 2021-02-23 Routine Karina [facility] 1.2.840.114 [id number] Univers 09:17:02 09:50:27 Corby Cuello 350.1.13.10 i ty of [place] [facility] [place]2.[place].2.[place] [id number] [address] 2021-02-23 2021-02-23 Outpatient R COLLINS YENNI [facility] [id number] Univers 09:15:00 09:15:00 ity of [facility] [place] 2021-02-19 2021-02-19 Telephone Karina [facility] 1.2.840.114 [id number] Univers 00:00:00 00:00:00 Cam Hannah 350.1.13.10 i ty of [place] 4.2.7.2.686 [place] Profess[place] [id number] Tx dical [address] 2021-01-26 2021-01-26 Routine Karina [facility] 1.2.840.114 [id number] Univers 13:04:32 13:25:43 Cam Cuate 350.1.13.10 i ty of Visit [place] [place]2.[place].2.[place] [id number] [address] 2021-01-26 2021-01-26 Outpatient R KARINA [facility] [id number] Univers 13:00:00 13:00:00 ity [facility] 2021-01-26 2021-01-26 Orders Doctor JULISSA 1.2.840.114 [id number] Univers 00:00:00 00:00:00 Only Unassigned, CHARITO 350.1.13.10 ity of [place] [facility] 4.2.7.2.686 Nikita as [phone] [address] 2021-01-02 2021-01-02 Outpatient R KARINA YENNI [facility] [id number] Univers 14:00:00 14:00:00 ity [facility] 2020-12-29 2020-12-29 Outpatient R KARINA [facility] [id number] Univers 12:15:00 12:15:[facility]-03[facility] 2019-03-29 [facility] [address] [facility] 21:51:00 21:51:00 Results This patient has no known results.
--- NOTE | 2022-11-09 22:27 | EDPHYS ---
Physician Documentation [facility] Name: Rosemary Arnold Age: 22 yrs Sex: Female : 2000 Arrival Date: 11/09/2022 Time: 22:06 Bed IW2 Private MD: ED Physician Paulino Garcia HPI: 11/09 22:20 This 22 yrs old Female presents to ER via Unassigned with complaints of Rash. cp 22:20 The patient's rash thought to be caused by an unknown cause. The rash is located on the cp face, chest, abdomen, right arm, left arm and neck. The rash can be described as mild erythema, scaly. Onset: The symptoms/episode began/occurred 1 week(s) ago. Associated signs and symptoms: Pertinent positives: itching, Pertinent negatives: difficulty breathing, fever. Severity of symptoms: in the emergency department the symptoms are worse. Treatment given at home: Benadryl. Historical: - Allergies: 22:43 No Known Allergies; os - Immunization history:: Adult Immunizations up to date. - Social history:: Smoking status: Patient denies any tobacco usage or history of. ROS: 22:22 Constitutional: Negative for body aches, chills, fever, poor PO intake. cp 22:22 Respiratory: Negative for cough, shortness of breath, wheezing. 22:22 Skin: Positive for rash, diffusely. 22:22 Neuro: Negative for altered mental status, headache, weakness. 22:22 All other systems are negative. Exam: 22:23 Constitutional: The patient appears in no acute distress, alert, awake, non-toxic, well cp developed, well nourished, obese. 22:23 Head/face: Noted is rash, of the forehead. 22:23 Neck: External neck: rash, that is mild, of the right posterior aspect of neck, ROM/movement: is normal, is supple, without pain, no range of motions limitations, no meningismus. 22:23 Respiratory: the patient does not display signs of respiratory distress, Respirations: normal, no use of accessory muscles, no retractions, labored breathing, is not present, Breath sounds: are clear throughout, no decreased breath sounds, no stridor, no wheezing. 22:23 Skin: rash can be described as erythematous, excoriated, plaque-like, on the chest, abdomen, right arm and left arm. Vital Signs: 22:39 BP 126 / 82; Pulse 88; Resp 16; Temp 98.4; Pulse Ox 100% on R/A; os MDM: 22:26 Patient medically screened. cp 22:26 Data reviewed: vital signs, nurses notes. cp 22:26 Differential diagnosis: allergic reaction, dermatitis, scabies. Counseling: I had a cp detailed discussion with the patient and/or guardian regarding: the historical points, exam findings, and any diagnostic results supporting the discharge/admit diagnosis, the need for outpatient follow up, a family practitioner, to return to the emergency department if symptoms worsen or persist or if there are any questions or concerns that arise at home. Administered Medications: No medications were administered Disposition: 11/10 02:17 Co-signature as Attending Physician, Paulino Garcia DO I was immediately available on-site ms3 in the Emergency Department for consultation in the care of the patient. Disposition Summary: 11/09/22 22:26 Discharge Ordered Location: Home cp Problem: new cp Symptoms: are unchanged cp Condition: Stable cp Diagnosis - Dermatitis, unspecified cp Followup: cp - With: Private Physician - When: 2 - 3 days - Reason: Recheck today's complaints Discharge Instructions: - Discharge Summary Sheet cp Forms: - Medication Reconciliation Form cp - Thank You Letter cp - Antibiotic Education cp - Prescription Opioid Use cp Prescriptions: - Pepcid 20 mg Oral Tablet - take 1 tablet by ORAL route every 12 hours for 5 days; 10 tablet; Refills: 0, cp Product Selection Permitted - Zyrtec 10 mg Oral Tablet - take 1 tablet by ORAL route once daily As needed; 20 tablet; Refills: 0, cp Product Selection Permitted - Triamcinolone Acetonide 0.5 % Topical Cream - apply 1 application by TOPICAL route 2 times per day for 8-10 days apply to cp areas of rash except face and genitalia; 45 gram; Refills: 0, Product Selection Permitted - Prednisone 20 mg Oral Tablet - take 2 tablets by ORAL route once daily for 5 days; 10 tablet; Refills: 0, cp Product Selection Permitted Signatures: Addison Mccarthy PA PA cp Paulino Garcia DO DO ms3 Echo Reynolds RN RN os Corrections: (The following items were deleted from the chart) 11/09 22:44 22:43 PMHx: ovary cyst; os os
--- NOTE | 2022-11-09 22:52 | ER ---
Nurse's Notes [facility] Name: Rosemary Arnold Age: 22 yrs Sex: Female : 2000 Arrival Date: 11/09/2022 Time: 22:06 Bed IW2 Private MD: Diagnosis: Dermatitis, unspecified Presentation: 11/09 22:39 Chief complaint: Patient states: I had some redness w/rash starting 7 days ago. It os first started on my forehead and then everyday it added a sport in my body. I have been putting calamine lotion, but it's not really helping that much. Coronavirus screen: Vaccine status: Patient reports being unvaccinated. Ebola Screen: Patient negative for fever greater than or equal to 101.5 degrees Fahrenheit, and additional compatible Ebola Virus Disease symptoms. Initial Sepsis Screen: Does the patient meet any 2 criteria? No. Patient's initial sepsis screen is negative. Does the patient have a suspected source of infection? No. Patient's initial sepsis screen is negative. Risk Assessment: Do you want to hurt yourself or someone else? Patient reports no desire to harm self or others. Onset of symptoms was November 02, 2022. 22:39 Method Of Arrival: Ambulatory os 22:39 Acuity: TRACY 4 os Historical: - Allergies: 22:43 No Known Allergies; os - Immunization history:: Adult Immunizations up to date. - Social history:: Smoking status: Patient denies any tobacco usage or history of. Vital Signs: 22:39 BP 126 / 82; Pulse 88; Resp 16; Temp 98.4; Pulse Ox 100% on R/A; os ED Course: 22:07 Patient arrived in ED. [email or web address] 22:08 Addison Mccarthy PA is PHCP. elinor 22:08 Paulino Garcia DO is Attending Physician. cp 22:43 Triage completed. os Administered Medications: No medications were administered Outcome: 22:26 Discharge ordered by MD. cp 22:51 Patient left the ED. os Signatures: Addison Mccarthy PA PA cp Jeffries, Jennifer [email or web address] Echo Reynolds RN RN os Corrections: (The following items were deleted from the chart) 22:44 22:43 PMHx: ovary cyst; os os
[2022-11-09 23:00] VITALS: BP 126/82; TEMP 98.4; O2SAT 100
== END 2022-11-09 22:51 | disposition home or self-care (01) ==
LOC: ER 22:06
DX: L30.9 Dermatitis, unspecified (principal)
CPT/HCPCS: 99281